=== PATIENT | male | born 1970 | race Caucasian/White ===

== ENCOUNTER → 2017-12-13 07:49 | Outpatient (CLI) | payer MEDICAID, SELFPAY ==
--- NOTE | 2017-12-13 | MR_ITS ---
MR lumbar spine wo con, MR 3-d myelogram/MRCP HISTORY: ITS.REASON: LEFT LUMBAR RADICULOPATHY . Low back pain radiating the left hip with tingling and burning down left leg ORDERING PHYSICIAN: Anthony Contreras MD PATIENT AGE: 47 years COMPARISON: None TECHNIQUE: Standard multiplanar multiecho sequences are performed without contrast. 3-D MIP and myelographic images are also rendered and reviewed FINDINGS: There is normal alignment. The spinal cord ends at the T12-L1 level. T12-L1, L1-L2, and L2-L3 have an unremarkable appearance. L3-L4: Concentric bulging disc slightly eccentric toward the left with mild facet and ligamentum flavum hypertrophy with mild bilateral foraminal narrowing. This is slightly greater on the left. There is increased T2 signal involving the central aspect of the disc suggesting a small annular tear. L4-L5: Bulging disc with a broad-based small to medium-sized central disc protrusion/herniation with minimal inferior extrusion. There is associated facet and ligamentum hypertrophy also at this level. There is mild narrowing of the canal. There is severe bilateral lateral recess narrowing with moderate right foraminal narrowing and moderate to severe left foraminal narrowing. There is impingement upon both L5 nerve roots. This is greater on the left. L5-S1: Unremarkable. IMPRESSION: 1. Concentric bulging disc at L3-L4 slightly eccentric toward the left with mild facet and ligamentum flavum hypertrophy with mild bilateral foraminal narrowing. This is slightly greater on the left. There is increased T2 signal involving the central aspect of the disc suggesting a small annular tear. 2. Bulging disc at L4-L5 with a broad-based small to medium-sized central disc protrusion/herniation with minimal inferior extrusion. There is associated facet and ligamentum hypertrophy also at this level with mild narrowing of the canal. There is severe bilateral lateral recess narrowing with moderate right foraminal narrowing and moderate to severe left foraminal narrowing. There is impingement upon both L5 nerve roots. This is greater on the left. IMPRESSION:
== END ==
PROVIDERS: Family Provider Family Medicine; PCP Nurse Practitioner; Visit Provider Family Medicine
DX: M54.16 Radiculopathy, lumbar region (principal)
CPT/HCPCS: 72148; 76376

== ENCOUNTER 2018-01-23 15:00 | Outpatient (RCR) | payer MEDICAID, SELFPAY | END 2018-01-23 15:01 | disposition home or self-care (01) | LOC: PT 15:00 | PROVIDERS: Family Provider Family Medicine; PCP Nurse Practitioner; Visit Provider Physician Assistant Medical | DX: M51.16 Intervertebral disc disorders with radiculopathy, lumbar region (principal) | CPT/HCPCS: 97010; 97012; 97014; 97110; G0283 ==

== ENCOUNTER 2018-08-26 11:00 | Outpatient (RCR) | payer MEDICAID, SELFPAY ==
--- NOTE | 2018-07-14 09:33 | HMH.PTOPEV ---
PT Outpatient Evaluation Rehab PT Outpatient Evaluation Start: 07/14/18 09:26 Freq: Status: Active Protocol: Document 07/14/18 09:26 DARRYN (Rec: 07/14/18 09:33 DARRYN [id number]) Electronically Signed By Luis Morse, PT 07/14/18 09:26 Outpatient Therapy Subjective History Subjective History Pt reports falling off ladder, landing on heels, and feeling a 'pop' in the low back. Pt reports a similar episode of pain last year, and 'this one doesn't feel quite as bad'. pt reports L sided LBP with radicular pain form L hip/glut to lateral calf area. Chief Complaint Pain Spasms Paresthesia Symptom Type Ache Throb Numbness Tingling Symptoms Relieved By Nothing Symptoms Aggravated By Sitting Physical Activity Walking Lifting Prior Functional Limitations None Current Functional Limitations Lifting Sitting Walking Symptom Description Constant and Continuous Level of pain today (0-10) 6 Pain scale - at its best (0-10) 3 Pain scale - at its worst (0-10) 8 Lumbopelvic Eval Posture Thoracic Spine Posture Standing Position Neutral Lumbar Spine Posture Standing Position Neutral Assistive device Assistive Devices None / NA Gait Observation General Gait Pattern Observation Antalgic Gait Palapation tenderness left paraspinal tenderness Yes: 3/4 buttock tenderness Yes: 3/4 Lumbar/Sacral Palpation Findings Tenderness Muscle Guarding Lumbar/Sacral Palpation Overall Comment 3/4 Accessory Movement L-spine Vertebrae Accessory Movements Central P/A [place] that Elicit Symptoms L4 left L5 left Range of Motion Lumbar Spine Active Flexion Range of 0-80 Motion (degrees) Lumbar Spine Active Extension Range of 0-20 Motion (degrees) Left Lumbar Spine Lateral Flexion Active 0-15 Range of Motion (degrees) Right Lumbar Spine Lateral Flexion 0-25 Active Range of Motion (degrees) Lumbar Spine ROM Limitations Pain Manual Muscle Test Bilateral Knee Extension Strength Grade 5 Normal Knee Flexion Strength Grade 5 Normal Hip Flexion Strength Grade 4- Good-
--- NOTE | 2018-08-12 09:32 | HMH.RHREAS ---
Rehab Reassessment Rehab OP Re-assessment Start: 08/12/18 09:27 Freq: Status: Active Protocol: Document 08/12/18 09:27 DARRYN (Rec: 08/12/18 09:32 DARRYN [id number]) Electronically Signed By Luis Morse, PT 08/12/18 09:27 Rehab Re-assessment Subjective Subjective PT REPORTS IMPROVED L LE S/S INTERMITTENTLY, HOWEVER, STILL 'HAVE MORE PAIN THAN I'D LIKE , ESPECIALLY WHEN I'M WORKING' . Objective Objective Notes AROM: L-SPINE FLX 0-80, EXT 0- 25, B SB 0-30 MMT: B LE WFL TTP: L PIRI. MM 10/31 Assessment Progress Assessment Progressing as Expected Assessment Notes PT W/IMPROVED ROM, STRENGTH, AND TTP Patient goals met STG'S 01/31 LTG'S 12/05 Goals Not Met STG'S 12/03, LTG'S 04/04 Plan Plan PT TO CONT. W/SKILLED P.T. TO MAKE FURTHER IMPROVEMENTS W/ ROM, STRENGTH, AND TTP TO ALLOW FOR OPTIMAL FUNCTION Frequency of Therapy 1-2X/WK Duration of therapy 3-4WKS Time and Billing Re-Eval Time 15 Re-Eval Billing Units 1 PHYSICIAN CERTIFICATION: I certify the specified therapy services for Akil Thompson are required, authorized, and reviewed every 30 days.
== END 2018-08-26 11:01 | disposition home or self-care (01) ==
LOC: PT 11:00
PROVIDERS: Visit Provider Family Medicine
DX: M51.16 Intervertebral disc disorders with radiculopathy, lumbar region (principal)
CPT/HCPCS: 97010; 97012; 97014; 97110; 97163; 97164; G0283

== ENCOUNTER → 2020-03-04 15:11 | Outpatient (CLI) | payer OTHER, SELFPAY ==
--- NOTE | 2020-03-04 15:20 | XR_ITS ---
PROCEDURE: XR LUMBAR SPINE MIN 4V CLINICAL INDICATION: RT SIDED LOW BACK PAIN COMPARISON: No exams were available for comparison FINDINGS: There is normal alignment. There is mild degenerative disc disease L2 to L5. Small anterior osteophytes are present at L2-L3 L4 and L5. No fracture or dislocation. No lytic or blastic change. IMPRESSION: Mild degenerative changes Dictated by: Sarthak Lee MD 03/04/2020 15:45 Electronically signed by Sarthak Lee MD in [place] 03/04/2020 15:45
== END ==
PROVIDERS: PCP Family Medicine; Visit Provider Family Medicine
DX: M54.41 Lumbago with sciatica, right side (principal); G89.29 Other chronic pain
CPT/HCPCS: 72110

== ENCOUNTER → 2020-05-26 15:48 | Outpatient (CLI) | payer OTHER, SELFPAY ==
[2020-05-28 08:56] LABS: Covid-19 Nasal PCR Sendout Lex NOT DETECTED
== END ==
PROVIDERS: PCP Family Medicine; Visit Provider Family Medicine
DX: Z03.818 Encounter for observation for suspected exposure to other biological agents ruled out (principal)
CPT/HCPCS: U0004

== ENCOUNTER 2021-01-03 23:53 | Emergency (ER) | payer OTHER, SELFPAY ==
[2021-01-03 23:54] VITALS: BP 144/89; PULSE 71; RESP 20; TEMP 36.7; O2SAT 97; BMI 34.3
--- NOTE | 2021-01-04 00:23 | XR_ITS ---
PROCEDURE: XR PELVIS MIN 3V CLINICAL INDICATION: pain Right hip pain COMPARISON: CT CT ABDOMEN PELVIS WO CON from 12/09/2019 CR XR HIP RT 2-3V W/PELVIS from 01/04/2021 TECHNIQUE: XR Pelvis AP View FINDINGS: No fracture or dislocation is evident. Mild osteoarthritic changes of hips. 1 cm calcific density in the soft tissues lateral to the right hip which may be due to injection granuloma. Small sclerotic density is noted overlying the junction of the femoral head and neck and may be due to a bone island. This may also be due to summation artifact. IMPRESSION: Mild osteoarthritic change. No acute finding. Possible small sclerotic lesion of the junction of the femoral head and neck on the right. Dictated by: Sarthak Lee MD 01/04/2021 05:21 Sarthak Lee MD in [place] 01/04/2021 05:21
--- NOTE | 2021-01-04 00:23 | XR_ITS ---
PROCEDURE: XR LUMBAR SPINE MIN 4V CLINICAL INDICATION: pain Pain radiating into right leg COMPARISON: CR XR LUMBAR SPINE MIN 4V from 03/04/2020 FINDINGS: Normal alignment. Mild multilevel degenerative disc disease. No acute fracture or dislocation. There is degenerative disc disease from L1-S1. No lytic or blastic change. Mild facet sclerosis L5-S1. IMPRESSION: Lumbar spondylosis. Dictated by: Sarthak Lee MD 01/04/2021 05:11 Sarthak Lee MD in [place] 01/04/2021 05:11
[2021-01-04 01:10] LABS: Basophils # 0.1 K/mm3 (0-0.2); Basophils % 0.8 % (0.1-2.0); Eosinophils # 0.6 K/mm3 (0.0-0.4); Eosinophils % 6.8 % (0.1-12.0); Hematocrit 42.8 % (42.0-52.0); Hemoglobin 13.8 g/dL (14.1-18.0); Lymphocytes % 42.5 % (10-50); Mean Corpuscular HGB Conc 32.3 g/dL (31.8-35.4); Mean Corpuscular Hemoglobin 28.4 pg (27.0-31.2); Mean Corpuscular Volume 87.9 fl (80-94); Mean Platelet Volume 7.1 fl (7.4-10.4); Monocytes # 0.7 K/mm3 (0.1-1.0); Monocytes % 7.5 % (1.7-9.3); Neutrophils # 3.9 K/mm3 (1.8-7.8); Neutrophils % 42.3 % (37.0-80.0); Platelet Count 313 K/mm3 (142-424); Red Blood Count 4.87 M/mm3 (4.60-6.20); White Blood Count 9.3 K/mm3 (4.8-10.8)
[2021-01-04 01:15] LABS: Chloride 105 mmol/L (98-107); Potassium 4.2 mmoL/L (3.5-5.1); Sodium 138 mmol/L (136-145)
[2021-01-04 01:18] LABS: Alanine Aminotransferase 34 U/L (12-78); Albumin/Globulin Ratio 1.1 (1.1-1.8); Alkaline Phosphatase 82 U/L (38-126); Anion Gap 10.2 mEq/L (5-15); Aspartate Amino Transferase 37 U/L (17-59); Bilirubin,Total 0.4 mg/dl (0.2-1.3); Blood Urea Nitrogen 17 mg/dl (9-20); Carbon Dioxide 27 mmol/L (22.0-30.0); Creatinine Clearance Estimated 121 mL/min (50-200); Estimated Glomerular Filt Rate 79 ml/min (>60); GFR (African American) 96 ML/MIN (>60); Globulin 3.5 g/dL (1.3-3.2); Glucose 119 mg/dl (74-100); Total Protein,Serum 7.5 g/dl (6.3-8.2)
[2021-01-04 01:24] LABS: C-Reactive Protein 3.4 mg/L (0-4)
--- NOTE | 2021-01-04 01:41 | HMH.EDGENADL ---
ED Disposition Clinical Impression: Lumbar radicular pain Disposition: Home, Self-Care Condition on Discharge: Good Instructions: DI for Lumbar Radiculopathy Additional Instructions: use meds and see pcp for follow up Prescriptions: predniSONE [Prednisone 20mg Tab] 20 mg PO BID #10 tab Transmission Status: Pending to [id number] Referrals: Anthony Contreras MD [Primary Care Provider] - - Critical Care Critical Care Time: No Attestation: On 01/03/21, the high probability of a clinically significant, sudden or life threatening deterioration of the following system(s) required my full and direct attention, intervention and personal management. The time I documented below is in addition to time spent performing reported procedures but includes the following listed in this critical care notation. Medical Decision Making - Medical Records Medical records reviewed: Yes: I reviewed the patient's medical records. - Miquel Inquiry Pt receiving controlled substance: No Vital Signs: 01/03/21 23:54 Temperature 98.0 F Temperature Source Oral Pulse Rate [Right] 71 Respiratory Rate 20 Blood Pressure [Right Arm] 144/89 H Blood Pressure Mean [Right Arm] 107 02 Sat by Pulse Oximetry 97 - Lab Data Lab results reviewed: Yes: I reviewed the patient's lab results. Lab Results 01/04/21 01:07: WBC 9.3, RBC 4.87, Hgb 13.8 L, Hct 42.8, MCV 87.9, MCH 28.4, MCHC 32.3, RDW 13.0, Plt Count 313, MPV 7.1 L, Neut % (Auto) 42.3, Lymph % (Auto) 42.5, George % (Auto) 7.5, Eos % (Auto) 6.8, Baso % (Auto) 0.8, Neut # (Auto) 3.9, Lymph # (Auto) 4.0, George # (Auto) 0.7, Eos # (Auto) 0.6 H, Baso # (Auto) 0.1 01/04/21 01:07: Sodium 138, Potassium 4.2, Chloride 105, Carbon Dioxide 27, Anion Gap 10.2, BUN 17, Creatinine 1.00, Estimated Creat Clear 121, Estimated GFR 79, Est GFR ( Amer) 96, Glucose 119 H, Calcium 9.0, Total Bilirubin 0.4, AST 37, ALT 34, Alkaline Phosphatase 82, C-Reactive Protein 3.4, Total Protein 7.5, Albumin 4.0, Globulin 3.5 H, Albumin/Globulin Ratio 1.1 Result diagrams: 01/04/21 01:07 01/04/21 01:07 Orders (Tests/Meds): ED MEDICATIONS Discontinued Medications Generic Name Dose Route Start Last Admin Trade Name Silvio PRN Reason Stop Dose Admin Ketorolac Tromethamine 30 mg 01/04/21 00:25 01/04/21 00:41 Ketorolac 30mg/Ml Vial IV 01/04/21 00:26 30 mg ONCE ONE Administration Methylprednisolone Sodium Succinate 125 mg 01/04/21 00:25 01/04/21 00:41 Methylprednisolone Sod Succ 125mg Vial IV 01/04/21 00:26 125 mg ONCE ONE Administration ORDERS Category Date Time Status XR hip RT 2-3V w/pelvis Stat Exams 01/04/21 00:23 Taken XR lumbar spine min 4V Stat Exams 01/04/21 00:23 Taken XR pelvis min 3V Stat Exams 01/04/21 00:24 Taken C-Reactive Protein Stat Lab 01/04/21 01:07 Results Complete Blood Count Auto Diff Stat Lab 01/04/21 01:07 Results Comprehensive Metabolic Panel Stat Lab 01/04/21 01:07 Results ESR [Erythrocyte Sedimentation Rate] Stat Lab 01/04/21 01:07 Results Procalcitonin Stat Lab 01/04/21 01:07 Results - Radiology Data #1 Image(s): L-Spine, Pelvis, Hip Image Reviewed: Yes I reviewed the patient's radiology image Preliminary Findings: No Fracture Seen - Reevaluation(s) Time: 01:48 Reevaluation #1: doing better Medical Decision Narrative: prob lumbar radicular pain with no cauda equina sx General Adult HPI - General Chief complaint: PAIN Stated complaint: Right hip pain Time Seen by Provider: 01/04/21 00:00 Mode of Arrival: Ambulatory Source of Information: Patient, Medical Record Limitations: No Limitations Description of Symptoms (Recalled from ER Triage Doc. by RN): pt c/o of rt hip that is sharp running down is leg. pt is currently in physical therepy foe this problem - History of Present Illness HPI narrative: acute exacerbation ot sciatica w/o fever/rash or trauma - has hx of lumbar radicular pain and i
[2021-01-04 01:48] VITALS: BP 148/64; PULSE 68; RESP 16; TEMP 36.7; O2SAT 97
[2021-01-04 02:08] LABS: Erythrocyte Sedimentation Rate 35 mm/hr (0-15)
[2021-01-04 02:40] LABS: Procalcitonin 0.054 ng/mL (0.0-2.0)
== END 2021-01-04 02:03 | disposition home or self-care (01) ==
PROVIDERS: Emergency Provider Emergency Medicine; PCP Family Medicine
DX: M54.16 Radiculopathy, lumbar region (principal); E78.5 Hyperlipidemia, unspecified
CPT/HCPCS: 72110; 72190; 73502; 80053; 84145; 85025; 85651; 86140; 96374; 96375; 99282

== ENCOUNTER 2021-01-05 07:59 | Emergency (ER) | payer OTHER, SELFPAY ==
[2021-01-05] VITALS (7 sets, daily range): BP systolic 105–140; BP diastolic 63–85; PULSE 61–76; RESP 18–20; TEMP 36.6–36.8; O2SAT 94–98; BMI 33.3
--- NOTE | 2021-01-05 07:58 | ECG_ITS ---
APPROVED REPORT Exam: Resting ECG HR:84 bpm ECG Measurements Heart Rate 84 AXES HI 144 P 42 QRSd 92 QRS 4 QT 354 T 32 QTc 418 Conclusion Normal sinus rhythm Normal ECG Electronically signed by : Anthony Renteria, 01/06/2021 08:55:05
--- NOTE | 2021-01-05 08:04 | XR_ITS ---
PROCEDURE: XR CHEST PORTABLE CLINICAL HISTORY: chest pain COMPARISON: No exams were available for comparison FINDINGS: The cardiomediastinal silhouette and pulmonary vascularity are within normal limits. The lungs are clear without infiltrates, suspicious nodules, or pleural effusions. No acute bony abnormalities. IMPRESSION: No acute findings. Dictated by: Sarthak Lee MD 01/05/2021 09:55 Sarthak Lee MD in [place] 01/05/2021 09:55
--- NOTE | 2021-01-05 08:27 | HMH.EDGENADL ---
ED Disposition Clinical Impression: Atypical chest pain, Epigastric pain Disposition: Home, Self-Care Condition on Discharge: Fair Instructions: DI for Dyspepsia, DI for Atypical Chest Pain Additional Instructions: Been evaluated for atypical chest pain and epigastric pain. Follow up with Dr. Estrella for further evaluation of chest pain. Follow-up with your primary care physician and call Dr. Allen, gastroenterology, for an appointment. I believe you would benefit from upper endoscopy to look for ulcers or other abnormality in your esophagus or stomach. Start taking omeprazole 20 mg daily. Avoid spicy food, acidic food, cafeine, tobacco, acohol. Avoid eating before sleep. Prescriptions: Omeprazole [Omeprazole 20mg Tab] 20 mg PO DAILY #30 tab Transmission Status: Pending to [id number] Referrals: Carlos Enrique Estrella MD [Staff Physician] - 01/09/21 8:30 am (Follow up from ER visit ) Anthony Contreras MD [Primary Care Provider] - Juan Allen MD [Staff Physician] - Time of Disposition: 10:59 - Critical Care Critical Care Time: No Attestation: On 01/05/21, the high probability of a clinically significant, sudden or life threatening deterioration of the following system(s) required my full and direct attention, intervention and personal management. The time I documented below is in addition to time spent performing reported procedures but includes the following listed in this critical care notation. Medical Decision Making - Medical Records Medical records reviewed: Yes: I reviewed the patient's medical records. - Miquel Inquiry Pt receiving controlled substance: No (He does not look significantly anemic but no notes) Vital Signs: 01/05/21 07:59 01/05/21 08:39 01/05/21 09:36 Temperature 98.2 F Temperature Source Oral Pulse Rate [Left Radial] 73 72 71 Respiratory Rate 18 20 20 Blood Pressure [Right Arm] 125/63 120/69 106/70 L Blood Pressure Mean [Right Arm] 83 86 82 Blood Pressure Source [Right Arm] Automatic Cuff Blood Pressure Position [Right Arm] Sitting 02 Sat by Pulse Oximetry 98 94 L 94 L Oxygen Delivery Method Room Air 01/05/21 10:30 Temperature Temperature Source Pulse Rate [Left Radial] 61 Respiratory Rate 19 Blood Pressure [Right Arm] 105/69 L Blood Pressure Mean [Right Arm] 81 Blood Pressure Source [Right Arm] Automatic Cuff Blood Pressure Position [Right Arm] Sitting 02 Sat by Pulse Oximetry 98 Oxygen Delivery Method Room Air - Lab Data Lab Results 01/05/21 08:11: WBC 18.2 H D, RBC 5.24, Hgb 15.1, Hct 47.4, MCV 90.4, MCH 28.8, MCHC 31.8, RDW 13.1, Plt Count 346, MPV 7.3 L, Neut % (Auto) 84.7 H, Lymph % (Auto) 10.3, Edgar % (Auto) 4.8, Eos % (Auto) 0.1, Baso % (Auto) 0.1, Neut # (Auto) 15.4 H, Lymph # (Auto) 1.9, Edgar # (Auto) 0.9, Eos # (Auto) 0.0, Baso # (Auto) 0.0, Total Counted 100, Neutrophils % (Manual) 88 H, Lymphocytes % (Manual) 10, Monocytes % (Manual) 2, Platelet Estimate Normal, RBC Morphology Normal 01/05/21 08:11: Sodium 139, Potassium 4.5, Chloride 107, Carbon Dioxide 22, Anion Gap 14.5, BUN 19, Creatinine 0.90, Estimated Creat Clear 134, Estimated GFR 89, Est GFR ( Amer) 108, Glucose 139 H, Calcium 9.4, Total Bilirubin 0.5, AST 34, ALT 37, Alkaline Phosphatase 89, Troponin I < 0.01, Total Protein 8.5 H, Albumin 4.5 D, Globulin 4.0 H, Albumin/Globulin Ratio 1.1 01/05/21 08:11: D-Dimer 0.35 01/05/21 08:11: Lipase 41 Result diagrams: 01/05/21 08:11 01/05/21 08:11 Orders (Tests/Meds): ED MEDICATIONS Discontinued Medications Generic Name Dose Route Start Last Admin Trade Name Freq PRN Reason Stop Dose Admin Aspirin 325 mg 01/05/21 08:16 01/05/21 08:27 Aspirin 325mg Tablet PO 01/05/21 08:17 325 mg ONCE ONE Administration Belladonna Alkaloids 60 ml 01/05/21 09:59 01/05/21 08:06 Gi Cocktail 60ml Udc PO 01/05/21 10:00 60 ml ONCE ONE Administration ORDERS Category Date Time Status Troponin I Q3H Lab
[2021-01-05 08:42] LABS: Basophils % 0.1 % (0.1-2.0); Eosinophils % 0.1 % (0.1-12.0); Hematocrit 47.4 % (42.0-52.0); Hemoglobin 15.1 g/dL (14.1-18.0); Lymphocytes # 1.9 K/mm3 (0.7-4.5); Lymphocytes % 10.3 % (10-50); Mean Corpuscular HGB Conc 31.8 g/dL (31.8-35.4); Mean Corpuscular Hemoglobin 28.8 pg (27.0-31.2); Mean Corpuscular Volume 90.4 fl (80-94); Mean Platelet Volume 7.3 fl (7.4-10.4); Monocytes # 0.9 K/mm3 (0.1-1.0); Monocytes % 4.8 % (1.7-9.3); Neutrophils # 15.4 K/mm3 (1.8-7.8); Neutrophils % 84.7 % (37.0-80.0); Platelet Count 346 K/mm3 (142-424); Red Blood Count 5.24 M/mm3 (4.60-6.20); Red Cell Distribution Width 13.1 % (11.5-17.5); White Blood Count 18.2 K/mm3 (4.8-10.8)
[2021-01-05 08:45] LABS: MANUAL DIFFERENTIAL MANUAL DIFFERENTIAL (MANUAL DIFF)
[2021-01-05 09:03] LABS: Alanine Aminotransferase 37 U/L (12-78); Albumin Level 4.5 g/dl (3.5-5.0); Albumin/Globulin Ratio 1.1 (1.1-1.8); Alkaline Phosphatase 89 U/L (38-126); Anion Gap 14.5 mEq/L (5-15); Aspartate Amino Transferase 34 U/L (17-59); Bilirubin,Total 0.5 mg/dl (0.2-1.3); Blood Urea Nitrogen 19 mg/dl (9-20); Calcium 9.4 mg/dl (8.4-10.2); Carbon Dioxide 22 mmol/L (22.0-30.0); Chloride 107 mmol/L (98-107); Creatinine Clearance Estimated 134 mL/min (50-200); Estimated Glomerular Filt Rate 89 ml/min (>60); GFR (African American) 108 ML/MIN (>60); Glucose 139 mg/dl (74-100); Lipase 41 U/L (23-300); Potassium 4.5 mmoL/L (3.5-5.1); Sodium 139 mmol/L (136-145); Total Protein,Serum 8.5 g/dl (6.3-8.2)
[2021-01-05 09:07] LABS: D-Dimer 0.35 ug/mL (0.0-0.5)
[2021-01-05 09:17] LABS: Troponin I < 0.01 ng/ml (0.00-0.034)
[2021-01-05 09:53] LABS: Lymphocytes % 10 % (10-50); Monocytes % 2 % (2-9); Neutrophils % 88 % (42-76); Platelet Estimate Normal; RBC Morphology Normal; Total Cells Counted 100
--- NOTE | 2021-01-05 10:42 | PC.NURSE ---
MD at bedside discussing care.
[2021-01-05 11:40] LABS: Troponin I < 0.01 ng/ml (0.00-0.034)
== END 2021-01-05 11:45 | disposition home or self-care (01) ==
PROVIDERS: Emergency Provider Emergency Medicine; PCP Family Medicine
DX: R07.89 Other chest pain (principal); R10.13 Epigastric pain; K21.9 Gastro-esophageal reflux disease without esophagitis
CPT/HCPCS: 71045; 80053; 83690; 84484; 85007; 85025; 85378; 93005; 99283

== ENCOUNTER 2021-01-18 13:00 | Outpatient (RCR) | payer OTHER, SELFPAY ==
--- NOTE | 2020-12-21 14:36 | HMH.PTOPEV ---
PT Outpatient Evaluation Rehab PT Outpatient Evaluation Start: 12/21/20 14:02 Freq: Status: Active Protocol: Document 12/21/20 14:25 EMERSON (Rec: 12/21/20 14:36 PHORNE [id number]) Electronically Signed By Len Forrest, PT 12/21/20 14:25 Outpatient Therapy Subjective History Subjective History Pt is 50 yowm who presents with c/o pain in post R hip and lateral R LE to knee distally x 2-3 mos with insidious onset. He reports having previous symptoms similar to this, only on his L LE ~ 2-3 yrs ago. He had MRI at that time which showed L3/4 and L4/5 disc bulges. X-ray performed ~ 9 mos ago showed minimal DDD. He reports he had good result with therapy and had no pain since that time until now. He reports no significant PMH. Chief Complaint Pain Symptom Type Ache,Sharp Symptoms Relieved By Rest/Positioning Symptoms Aggravated By Bending/Stooping,Physical Activity,Lifting Prior Functional Limitations None Current Functional Limitations Lifting,Walking Symptom Description Constant but Variable Level of pain today (0-10) 2 Pain scale - at its worst (0-10) 6 Lumbopelvic Eval Palapation tenderness right buttock tenderness Yes Accessory Movement L-spine Vertebrae Accessory Movements Central P/A [place] that Elicit Symptoms L3 bilateral L4 bilateral L5 bilateral Range of Motion Lumbar Spine Active Flexion Range of 0-65 Motion (degrees) Lumbar Spine Active Extension Range of 0-10 Motion (degrees) Left Lumbar Spine Lateral Flexion Active 0-15 Range of Motion (degrees) Right Lumbar Spine Lateral Flexion 0-10 Active Range of Motion (degrees) Manual Muscle Test Bilateral Knee Extension Strength Grade 5 Normal Knee Flexion Strength Grade 5 Normal Hip Flexion Strength Grade 5 Normal Hip Abduction Strength Grade 5 Normal Hip Adduction Strength Grade 5 Normal Extensor Hallucis Longus Strength Grade 5 Normal Ankle Dorsiflexion Strength Grade 5 Normal Gastronemius/Soleus Strength Grade 5 Normal Special Tests Hip Scouring (Quadrant) Test Negative Left,Negative Right Hip Jose (TRENT) Test Negative Left,Negative Right Hip Piriformis Test Negative Left,N
== END 2021-01-18 13:05 | disposition home or self-care (01) ==
LOC: PT 13:00
PROVIDERS: PCP Family Medicine; Visit Provider Family Medicine
DX: M54.41 Lumbago with sciatica, right side (principal)
CPT/HCPCS: 97010; 97012; 97014; 97110; 97140; 97163; G0283

== ENCOUNTER → 2021-01-18 18:35 | Outpatient (CLI) | payer OTHER, SELFPAY ==
[2021-01-18 19:40] LABS: Coronavirus 19 IgG Antibody Negative (Negative); Coronavirus 19 IgM Antibody Negative (Negative)
== END ==
PROVIDERS: PCP Family Medicine; Visit Provider Internal Medicine Gastroenterology
DX: Z01.818 Encounter for other preprocedural examination (principal); Z20.822 Contact with and (suspected) exposure to COVID-19; Z13.810 Encounter for screening for upper gastrointestinal disorder; Z12.11 Encounter for screening for malignant neoplasm of colon
CPT/HCPCS: 36415; 86328

== ENCOUNTER 2021-01-20 09:01 | Day surgery (SDC) | payer OTHER, SELFPAY ==
[2021-01-17 13:16] VITALS: BMI 33.5
[2021-01-20] VITALS (8 sets, daily range): BP systolic 112–133; BP diastolic 60–80; PULSE 64–82; RESP 14–18; TEMP 36.2–36.6; O2SAT 93–98
--- NOTE | 2021-01-20 09:28 | P.PN_ITS ---
[facility] Anesthesia Checklist - Patient Identification Patient Identification: Arm Band - Structural Data Admitted From: Home Planned Operative Procedure/s: EGD, Colonscopy Consent for Planned Operative Procedure(s) Verified: Yes - NPO Status Verified Time NPO: 00:00 - Airway Assessment C-Spine Mobility Assessed: No TMJ Mobility Assessed: No Dentition: Good Dentition - Neurological Assessment Level of Consciousness: Awake Hx Seizures: No Numbness or tingling in extremities: No - Anesthesia Plan Anesthesia Risk discussed: Yes Anesthesia Plan: Verified ASA Class: II Anesthesia Type: MAC [facility] History I have reviewed the patient's past medical history: Yes 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: Reports:: Hyperlipidemia Denies:: Cancer, Diabetes Mellitus Type 1, Diabetes Mellitus Type 2, Internal Pacemaker, MRSA, Seizures *Have you ever received a pneumonia vaccine?: No *Have you received a flu vaccine this season?: No Anesthesia experience/problems:: None Laterality Cases: Bilateral: Tonsillectomy Other Surgeries: No: Pacemaker Amputation: No Fractures: No - *Social History Last grade of school completed: High school graduate Smoking Status: Never smoker Alcohol Intake: never Substance Use Type: denies use *Occupational Status:: employed Housing: house Household Members: spouse, family *Travel in the last 8 weeks: None Family Hx:: Unable to obtain
--- NOTE | 2021-01-20 09:53 | HMH.PROC ---
[facility] Procedure Note Procedure Note:: Upper Endoscopy Procedure Report: Esophagogastroduodenoscopy with cold biopsies Endoscopost: Juan Allen II, MD Referring Physician: Anthony Contreras MD Date of Procedure: January 20, 2021 Equipment: Olympus GIF 190 standard upper endoscope Sedation: MAC sedation Indications: Mr. Thompson is a 50-year-old gentleman who states that he developed more severe epigastric and lower retrosternal pain on January 05 or January 06, 2021. He had some associated nausea. It was relieved while lying supine. He was taking omeprazole. The patient reports no melena or hematochezia. He does state that the pain was not relieved within 24 hours but he had pressure for a couple of additional days that radiated into his shoulder blades. He did not have any gallbladder ultrasound. He reports no bloating, belching, heartburn or dysphagia. He reports no weight loss or change in bowel habits. He has stopped taking the omeprazole. Procedure: Prior to the procedure, a history and physical exam was performed, and patient's medications and allergies were reviewed. The risks, benefits and alternatives of the sedation and procedure were discussed with the patient. All questions were answered and informed consent was obtained. The patient was brought to the procedure room. Patient identification and proposed procedure were verified by the physician and the nurse. The patient was placed in a left lateral decubitus position and the scope was passed under direct vision. Throughout the procedure, the patient's blood pressure, pulse, and oxygen saturations were monitored continuously. The upper GI endoscopy was accomplished without difficulty. The patient tolerated the procedure well. Findings: The scope was passed directly into the upper esophagus and advanced to the third portion of the duodenum. The post bulbar duodenum had normal mucosa and conniventes. Within the duodenal bulb was evidence of a healing duodenal ulcer along the anterior medial wall of the duodenal bulb. The scope was withdrawn through a normal pylorus into the stomach. There was evidence of linear reactive gastropathy of the antrum of the stomach. There was bile reflux. The body and fundus of the stomach were grossly normal. The remainder of the antrum, body and fundus of the stomach were grossly normal. Upon retroflexion there was a small 2 cm hiatal hernia. 2 biopsies were taken in the antrum and along the lesser curvature for histology to rule out gastritis and/or H pylori. The scope was then withdrawn into the esophagus. There was a serrated Z-line with a couple of tongues of salmon-colored mucosa that were biopsied to rule out Squires's esophagus. There was no evidence of reflux esophagitis or rings. The remainder of the esophageal mucosa was normal. Impression: 1. Nonerosive GERD with small 2 cm hiatal hernia and possible short segment Squires's esophagus 2. Healing duodenal bulb ulcer (anterior medial wall) 3. Bile reflux with moderate linear reactive gastropathy Plan: I will follow-up the biopsies and discussed the findings with the patient and family. I will determine whether he was on NSAIDs previously. I would recommend that he remain on omeprazole for 12 weeks. I will proceed with screening colonoscopy.
--- NOTE | 2021-01-20 10:07 | HMH.PROC ---
[facility] Procedure Note Procedure Note:: Colonoscopy Procedure Report: Colonoscopy Endoscopist: Juan Allen II, MD Referring physician: Anthony Contreras MD Date of Procedure: January 20, 2021 Equipment: Olympus 190 variable stiffness pediatric colonoscope Sedation: MAC sedation Indication: Mr. Thompson is a 50-year-old gentleman who is here for screening colonoscopy. He does state that he had a colonoscopy by his recollection 8 years ago (? [facility]) at which time 2 or 3 polyps were removed. He reports no rectal bleeding, abdominal pain, weight loss or change in bowel habits. He reports no family history of colon cancer. Procedure: Prior to the procedure, a history and physical exam was performed, and patient's medications and allergies were reviewed. The risks, benefits and alternatives of the sedation and procedure were discussed with the patient. All questions were answered and informed consent was obtained. The patient was brought to the procedure room. Patient identification and proposed procedure were verified by the physician and the nurse. The patient was placed in a left lateral decubitus position and the scope was passed under direct vision. Throughout the procedure, the patient's blood pressure, pulse, and oxygen saturations were monitored continuously. The colonoscopy was accomplished without difficulty. The patient tolerated the procedure well. Findings: On digital rectal examination there was normal rectal tone. There were no external hemorrhoids. The colonoscope was introduced through the anal canal to the rectum and advanced to the cecum. The ileocecal valve and appendiceal orifice were identified. The scope was advanced a short distance into the ileum which appeared grossly normal. The scope was then withdrawn into the colon. The preparation was fair to poor throughout with a marked amount of solid plant residue and some liquid stool. The visible cecum, ascending, transverse, descending, sigmoid and rectum were grossly normal. There were no mucosal abnormalities identified. Upon retroflexion within the rectum there were grade 1 internal hemorrhoids.The preparation was fair to poor throughout with Rogers Preparation Score of 5 out of 9. The cecal time was 7 minutes. Impression: 1. Fair to poor bowel preparation otherwise normal colonoscopy to the terminal ileum Plan: I will inquire about how patient took bowel preparation and which preparation. I was still able to see and surveil the majority of the colon. We will discuss surveillance.
--- NOTE | 2021-01-20 10:13 | P.PN_ITS ---
[facility] Anesthesia Record Part I Intake, IV Amount: 500 Estimated blood loss (mL): 0 Urine output (mL): 0 Blood Pressure: 112/60 SaO2: 95 Pulse Rate: 82 Respiratory Rate: 14 Temperature: 97.1 F Patient is:: Awake Stable to PACU at:: 10:10
--- NOTE | 2021-01-20 11:50 | P.PN_ITS ---
[facility] Anesthesia Record Part II Discharge Time: 10:58 Destination: Surgical Day Care (OP Surgery) PACU nurse assessment reviewed?: Yes Patient Condition:: Good Anesthesia Complications:: None Swallowing reflex intact?: Yes Cyanosis?: No Blood Pressure: 116/76 Pulse Rate: 64 Temperature: 97.1 F Mental Status: Alert & Oriented Pain level:: 0 Nausea and/or vomitting:: None Intake, IV Amount: 500
== END 2021-01-20 11:08 | disposition home or self-care (01) ==
LOC: OUTP 09:02
PROVIDERS: PCP Family Medicine; Visit Provider Internal Medicine Gastroenterology
PROC: 0DJ08ZZ Inspection of Upper Intestinal Tract, Via Natural or Artificial Opening Endoscopic (ICD-10-PCS; CPT 43235; principal; 2021-01-20 10:00)
DX: Z12.11 Encounter for screening for malignant neoplasm of colon (principal); K64.0 First degree hemorrhoids; K21.9 Gastro-esophageal reflux disease without esophagitis; K31.9 Disease of stomach and duodenum, unspecified; K44.9 Diaphragmatic hernia without obstruction or gangrene; K22.9 Disease of esophagus, unspecified; E78.5 Hyperlipidemia, unspecified; Z88.0 Allergy status to penicillin; Z88.8 Allergy status to other drugs, medicaments and biological substances; Z79.899 Other long term (current) drug therapy
CPT/HCPCS: 43239; 45378

== ENCOUNTER → 2021-02-03 15:03 | Outpatient (CLI) | payer OTHER, SELFPAY ==
--- NOTE | 2021-02-03 15:06 | MR_ITS ---
PROCEDURE: MR LUMBAR SPINE WO CON CLINICAL INDICATION: ACUTE RT SIDED LBP Pt c/o acute rt sided lbp that radiates down rt leg x1.5months with no known injury or trauma. COMPARISON: MR SPLUMBWO MR lumbar spine wo con from 12/13/2017 TECHNIQUE: Standard multiplanar multiecho sequences are performed without contrast. 3-D MIP and myelographic images are also rendered and reviewed FINDINGS: There is normal alignment. The spinal cord ends at the T12-L1 level. L1-L2: Unremarkable. L2-L3: Mild bulging disc which is eccentric toward the left with mild facet and ligamentum hypertrophy. This is causing mild to moderate left foraminal narrowing L3-L4: Degenerative disc disease with bulging disc. There is a small right paracentral disc herniation with inferior extrusion impinging upon the right L4 nerve root. The disc herniation has developed since the previous exam L4-5: Bulging disc with broad-based central disc protrusion with facet and ligamentum hypertrophy with resultant bilateral lateral recess narrowing greater on the left abutting the exiting L4 nerve root. The disc protrusion appears slightly smaller compared to the previous study. L5-S1: Facet and ligamentum hypertrophic change. No fracture apparent. IMPRESSION: 1. L2-L3: Mild bulging disc which is eccentric toward the left with mild facet and ligamentum hypertrophy. This is causing mild to moderate left foraminal narrowing 2. L3-L4: Degenerative disc disease with bulging disc. There is a small right paracentral disc herniation with inferior extrusion impinging upon the right L4 nerve root. The disc herniation has developed since the previous exam 3. L4-5: Bulging disc with broad-based central disc protrusion with facet and ligamentum hypertrophy with resultant bilateral lateral recess narrowing greater on the left abutting the exiting L4 nerve root. The disc protrusion appears slightly smaller compared to the previous study Dictated by: Sarthak Lee MD 02/04/2021 19:14 Sarthak Lee MD in [place] 02/04/2021 19:14
== END ==
PROVIDERS: PCP Family Medicine; Visit Provider Family Medicine
DX: M54.41 Lumbago with sciatica, right side (principal)
CPT/HCPCS: 72148; 76376

== ENCOUNTER 2021-02-04 02:51 | Emergency (ER) | payer OTHER, SELFPAY ==
--- NOTE | 2021-02-04 02:53 | HMH.EDGENADL ---
ED Disposition Clinical Impression: Lumbar radicular pain Disposition: Home, Self-Care Condition on Discharge: Good Additional Instructions: Use topical diclofenac on right hip/lower back. Take muscle relaxer as needed for muscle spasms. Do not operate heavy machinery or drink alcohol while taking muscle relaxer. Please return immediately if new or worsening symptoms otherwise continue following with your primary care doctor/physical therapy. Prescriptions: Cyclobenzaprine HCl [Cyclobenzaprine 10mg Tab*] 10 mg PO BIDP PRN 7 Days #20 tab PRN Reason: Muscle Spasm Transmission Status: Pending to [id number] Diclofenac Sodium [Voltaren 100gm Topical Gel] 1 applicatio TP BID #50 gm Transmission Status: [id number] Referrals: Anthony Contreras MD [Primary Care Provider] - - Critical Care Critical Care Time: No Attestation: On , the high probability of a clinically significant, sudden or life threatening deterioration of the following system(s) required my full and direct attention, intervention and personal management. The time I documented below is in addition to time spent performing reported procedures but includes the following listed in this critical care notation. Medical Decision Making - Medical Records Medical records reviewed: Yes: I reviewed the patient's medical records. - Miquel Inquiry Pt receiving controlled substance: No Vital Signs: 02/04/21 03:00 Temperature 98.0 F Temperature Source Oral Pulse Rate [Right Brachial] 72 Respiratory Rate 20 Blood Pressure [Right Arm] 114/69 Blood Pressure Mean [Right Arm] 84 Blood Pressure Source [Right Arm] Automatic Cuff Blood Pressure Position [Right Arm] Supine 02 Sat by Pulse Oximetry 96 Oxygen Delivery Method Room Air Orders (Tests/Meds): ED MEDICATIONS Discontinued Medications Generic Name Dose Route Start Last Admin Trade Name Freq PRN Reason Stop Dose Admin Cyclobenzaprine HCl 10 mg 02/04/21 03:11 02/04/21 03:22 Cyclobenzaprine 10mg Tablet PO 02/04/21 03:12 10 mg ONCE ONE Administration Ketorolac Tromethamine 15 mg 02/04/21 03:12 02/04/21 03:22 Ketorolac 30mg/Ml Vial IM 02/04/21 03:13 15 mg ONCE ONE Administration Medical Decision Narrative: Patient resents to the emergency department with acute on chronic back pain. Patient does appear to have lumbar radiculopathy. Patient has no red flag symptoms of back pain. An MRI was done 2 days ago without known results. He states he has had x-rays in the past without acute findings. At this time, patient will be given Flexeril and a shot of Toradol IM. I reviewed his chart pain he states he was given a shot last time which very much improved his symptoms. On his last visit he was given a shot of Toradol. Patient with improved symptoms. Patient ambulatory w/o assistance. And cyclobenzaprine prescription provided. Patient would not operate machinery or drink alcohol taking Flexeril. Will follow up with PCP for further management of his lumbar radiculopathy. He will return immediately if any new or worsening symptoms. Assessment: Acute on chronic lumbar radiculopathy Disposition: Home with follow-up General Adult HPI - General Stated complaint: Hip Pain Time Seen by Provider: 02/04/21 03:05 - History of Present Illness HPI narrative: Patient is a 50-year-old male with history of right hip pain/sciatica presenting with right hip pain. Patient states over the past several months he has dealt with right hip pain. He has followed with physical therapy without much improvement. He had an MRI done 2 days ago. Results not known at this time. He has had other imaging in the past which was unremarkable. He states he had a similar issue back in 2018 on the left side and physical therapy did help resolve his symptoms. He has been taking some ibuprofen at home without much relief. He also does take Neurontin. This evening, the p
[2021-02-04 03:00] VITALS: BP 114/69; PULSE 72; RESP 20; TEMP 36.7; O2SAT 96; BMI 33.5
[2021-02-04 03:31] VITALS: PULSE 85; O2SAT 95
[2021-02-04 03:49] VITALS: BP 106/57; PULSE 78; RESP 19; TEMP 36.7; O2SAT 96
== END 2021-02-04 03:50 | disposition home or self-care (01) ==
PROVIDERS: Emergency Provider Emergency Medicine; PCP Family Medicine
DX: M54.16 Radiculopathy, lumbar region (principal); E78.5 Hyperlipidemia, unspecified; Z88.0 Allergy status to penicillin; Z79.899 Other long term (current) drug therapy
CPT/HCPCS: 96372; 99282

== ENCOUNTER 2021-02-28 08:02 | Emergency (ER) | payer OTHER, SELFPAY ==
[2021-02-28 08:03] VITALS: BP 131/84; PULSE 75; RESP 16; TEMP 36.6; O2SAT 98; BMI 34.1
--- NOTE | 2021-02-28 08:07 | HMH.EDGENADL ---
ED Disposition Clinical Impression: Lumbar radiculopathy Disposition: Home, Self-Care Condition on Discharge: Good Referrals: Anthony Contreras MD [Primary Care Provider] - 3 days Time of Disposition: 08:22 - Critical Care Critical Care Time: No Attestation: On , the high probability of a clinically significant, sudden or life threatening deterioration of the following system(s) required my full and direct attention, intervention and personal management. The time I documented below is in addition to time spent performing reported procedures but includes the following listed in this critical care notation. Medical Decision Making - Medical Records Medical records reviewed: Yes: I reviewed the patient's medical records. - Miquel Inquiry Pt receiving controlled substance: No Vital Signs: 02/28/21 08:03 Temperature 98 F Temperature Source Oral Pulse Rate [Radial] 75 Respiratory Rate 16 Blood Pressure [Right Arm] 131/84 Blood Pressure Mean [Right Arm] 99 Blood Pressure Position [Right Arm] Sitting 02 Sat by Pulse Oximetry 98 Oxygen Delivery Method Room Air Medical Decision Narrative: 50yo M with known back pathology evaluated for pain. Patient is acutely uncomfortable on initial evaluation but otherwise in no acute distress. Treated with Toradol and Decadron. Patient appropriate stable to go home and take his regular pain medications. General Adult HPI - General Stated complaint: back pain Time Seen by Provider: 02/28/21 08:08 Mode of Arrival: Ambulatory - History of Present Illness HPI narrative: 50yo M with past medical history significant for known disc disease presents emergency department secondary to back pain. Patient reports he is to undergo spinal surgery 1 week from today in [place]. He states he was unable to sleep last night secondary to pain. Pain worsened this morning when he got up to go to the bathroom. He denies any new numbness. He denies any loss of bladder or bowel function. He denies any fall. Patient reports he has tramadol, hydrocodone, gabapentin at home of which she is not taking anything this morning. Patient states this happened previously and was well treated with steroid injection as well as something for inflammation. - Related Data Home Medications Medication Instructions Recorded Confirmed Atorvastatin Calcium [Atorvastatin 40 mg PO DAILY 05/21/18 02/04/21 40mg Tab] omeprazole 20 mg tablet,delayed 20 mg PO BID tab 01/09/21 02/04/21 release Previous Rx's Medication Instructions Recorded Cyclobenzaprine HCl 10 mg PO BIDP PRN 7 Days #20 tab 02/04/21 [Cyclobenzaprine 10mg Tab*] Diclofenac Sodium [Voltaren 100gm 1 applicatio TP BID #50 gm 02/04/21 Topical Gel] Allergies Allergy/AdvReac Type Severity Reaction Status Date / Time cefaclor [From CECLOR] Allergy Mild Rash Verified 02/04/21 03:24 Penicillins [PENICILLINS] Allergy Unknown Verified 02/04/21 03:24 [facility] History - Hepatitis A Screen Drug use history?: No Attestation statement:: This patient has been screened for Hepatitis A risk factors. I have reviewed the patient's past medical history: Yes 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: Reports:: Hyperlipidemia Denies:: Cancer, Diabetes Mellitus Type 1, Diabetes Mellitus Type 2, Internal Pacemaker, MRSA, Seizures Laterality Cases: Bilateral: Tonsillectomy Other Surgeries: No: Pacemaker Amputation: No Fractures: No - Social History Smoking Status: Never smoker Alcohol Intake: current Alcohol Intake Frequency:: holidays/special occasions only Substance Use Type: denies use Occupational Status: employed Housing: house Household Members: spouse Family Hx:: Unable to obtain ROS Obtained: Yes All systems reviewed & no additional complaints Physical Exam - General General appearance: alert, in no apparent distress - Head Head exam: atraumatic - Eye Eye exam: Present: normal appearance, EOMI - Chest Chest inspection: Present: normal i
[2021-02-28 08:50] VITALS: BP 132/74; PULSE 82; RESP 16; TEMP 36.6; O2SAT 98
== END 2021-02-28 08:51 | disposition home or self-care (01) ==
PROVIDERS: Emergency Provider Family Medicine; PCP Family Medicine
DX: M54.16 Radiculopathy, lumbar region (principal); Z88.0 Allergy status to penicillin; E78.5 Hyperlipidemia, unspecified
CPT/HCPCS: 96372; 99281

== ENCOUNTER 2021-06-11 10:16 | Emergency (ER) | payer OTHER, SELFPAY ==
[2021-06-11 10:53] VITALS: BP 132/84; PULSE 74; RESP 14; TEMP 36.9; O2SAT 97; BMI 32.5
--- NOTE | 2021-06-11 10:58 | HMH.EDUTC ---
[facility] Disposition Clinical Impression: Sinusitis Qualifiers: Sinusitis location: unspecified location Chronicity: acute Recurrence: non-recurrent Qualified Code(s): J01.90 - Acute sinusitis, unspecified Otitis media Qualifiers: Otitis media type: suppurative Chronicity: acute Laterality: bilateral Recurrence: non-recurrent Spontaneous tympanic membrane rupture: without spontaneous rupture Qualified Code(s): H66.003 - Acute suppurative otitis media without spontaneous rupture of ear drum, bilateral Disposition: Home, Self-Care Condition on Discharge: Good Instructions: Middle Ear Infection, DI for Sinusitis Additional Instructions: Drink plenty of fluids. Take tylenol or ibuprofen for pain or fever. Take the medications as directed. Follow up with your regular doctor. GO TO THE ER FOR ANY WORSENING SYMPTOMS Don't start the oral steroids until tomorrow, since you had the shot here today. Prescriptions: Doxycycline Hyclate [Doxycycline 100mg Capsule] 100 mg PO Q12 10 Days #20 cap Transmission Status: Received by [id number] methylPREDNISolone [Medrol] 4 mg PO DIRECTED 6 Days #21 [email or web address] Transmission Status: Received by [id number] Referrals: Anthony Contreras MD [Primary Care Provider] - Medical Decision Making - Medical Records Medical records reviewed: No: I reviewed the patient's medical records. - Miquel Inquiry Pt receiving controlled substance: No Vital Signs: 06/11/21 10:53 06/11/21 11:37 Temperature 98.4 F 98 F Temperature Source Oral Pulse Rate 79 Pulse Rate [Left] 74 Respiratory Rate 14 16 Blood Pressure 132/84 Blood Pressure [Right Arm] 132/84 Blood Pressure Mean [Right Arm] 100 Blood Pressure Position Left Lateral 02 Sat by Pulse Oximetry 97 - Lab Data Lab results reviewed: Yes: I reviewed the patient's lab results. Orders (Tests/Meds): ED MEDICATIONS Discontinued Medications Generic Name Dose Route Start Last Admin Trade Name Freq PRN Reason Stop Dose Admin Methylprednisolone Sodium Succinate 125 mg 06/11/21 11:03 06/11/21 11:29 Methylprednisolone Sod Succ 125mg Vial IM 06/11/21 11:04 125 mg ONCE ONE Administration [facility] HPI - General Stated complaint: congestion Time Seen by Provider: 06/11/21 10:58 Mode of Arrival: Ambulatory Source of Information: Patient Limitations: No Limitations Description of Symptoms (Recalled from Triage Doc. by RN): PT C/O OF SINUS CONGESTION, PRESSURE AND PAIN, WELL BILATERAL EAR PRESSURE AND PAIN. HE WAS TREATED AT [facility] ABOUT 3WKS AGO FOR A SINUS INFECTION. HE STATES HE JUST HASN'T BEEN ABLE TO FULL KICK IT AND IT NORMALLY TAKES A STEROID. HEENT Symptoms (Recalled from RN notes): Yes (SINUS/EAR PAIN/PRESSURE) Resp Symptoms (Recalled from RN notes): No Skin Symptoms (Recalled from RN notes): No MS Symptoms (Recalled from RN notes): No Functional Status (Recalled from RN notes): NA - History of Present Illness Provider Complaint: He states that he is not completely better after being treated for a sinus infection around 3 weeks ago. - Related Data Home Medications Medication Instructions Recorded Confirmed Atorvastatin Calcium [Atorvastatin 40 mg PO DAILY 05/21/18 05/12/21 40mg Tab] omeprazole 20 mg tablet,delayed 20 mg PO BID tab 01/09/21 05/12/21 release Previous Rx's Medication Instructions Recorded azithromycin 250 mg tablet 250 mg PO QDAY 5 Days #6 tab 05/12/21 Doxycycline Hyclate [Doxycycline 100 mg PO Q12 10 Days #20 cap 06/11/21 100mg Capsule] methylPREDNISolone [Medrol] 4 mg PO DIRECTED 6 Days #21 06/11/21 [email or web address] Allergies Allergy/AdvReac Type Severity Reaction Status Date / Time cefaclor [From CECLOR] Allergy Mild Rash Verified 05/12/21 16:32 Penicillins [PENICILLINS] Allergy Unknown Verified 05/12/21 16:32 - Worker's Comp Is this a Worker's Comp case?: No [facility] History - Hepatitis A Screen Drug use hi
[2021-06-11 11:37] VITALS: BP 132/84; PULSE 79; RESP 16; TEMP 36.6
== END 2021-06-11 11:39 | disposition home or self-care (01) ==
PROVIDERS: Emergency Provider Nurse Practitioner Family; PCP Family Medicine
DX: J01.90 Acute sinusitis, unspecified (principal); H66.003 Acute suppurative otitis media without spontaneous rupture of ear drum, bilateral; K21.9 Gastro-esophageal reflux disease without esophagitis; E78.5 Hyperlipidemia, unspecified; Z88.0 Allergy status to penicillin; Z79.899 Other long term (current) drug therapy
CPT/HCPCS: 99202; G0463

== ENCOUNTER 2021-07-24 09:55 | Emergency (ER) | payer OTHER, SELFPAY ==
[2021-07-24 09:55] VITALS: BP 132/90; PULSE 83; RESP 18; TEMP 36.7; O2SAT 98; BMI 32.5
--- NOTE | 2021-07-24 10:18 | XR_ITS ---
PROCEDURE: XR SHOULDER RT MIN 2V CLINICAL INDICATION: pain COMPARISON: No exams were available for comparison FINDINGS: No fracture or dislocation. No lytic or blastic change. There is normal mineralization. Mild osteoarthritic changes are present at the glenohumeral joint. A subchondral lucency is present at the greater tuberosity of the humerus consistent with a sub chondral cyst.. Other findings:None. IMPRESSION: Mild osteoarthritic changes Dictated by: Sarthak Lee MD 07/24/2021 11:15 Sarthak Lee MD in [place] 07/24/2021 11:15
--- NOTE | 2021-07-24 10:18 | XR_ITS ---
PROCEDURE: XR CHEST 2V CLINICAL HISTORY: cough COMPARISON: CR XR CHEST PORTABLE from 01/05/2021 FINDINGS: The cardiomediastinal silhouette and pulmonary vascularity are within normal limits. The lungs are clear without infiltrates, suspicious nodules, or pleural effusions. No acute bony abnormalities. IMPRESSION: No acute findings. Dictated by: Sarthak Lee MD 07/24/2021 11:22 Sarthak Lee MD in [place] 07/24/2021 11:22
--- NOTE | 2021-07-24 10:33 | HMH.EDGENADL ---
ED Disposition Clinical Impression: Right shoulder strain Qualifiers: Encounter type: initial encounter Qualified Code(s): S46.911A - Strain of unspecified muscle, fascia and tendon at shoulder and upper arm level, right arm, initial encounter Disposition: Home, Self-Care Condition on Discharge: Good Instructions: DI for Muscle Strain Referrals: Anthony Contreras MD [Primary Care Provider] - - Critical Care Critical Care Time: No Attestation: On 07/24/21, the high probability of a clinically significant, sudden or life threatening deterioration of the following system(s) required my full and direct attention, intervention and personal management. The time I documented below is in addition to time spent performing reported procedures but includes the following listed in this critical care notation. Medical Decision Making - Medical Records Medical records reviewed: Yes: I reviewed the patient's medical records. - Miquel Inquiry Pt receiving controlled substance: No Vital Signs: 07/24/21 09:55 Temperature 98.0 F Temperature Source Oral Pulse Rate [Left Radial] 83 Respiratory Rate 18 Blood Pressure [Right Arm] 132/90 Blood Pressure Mean [Right Arm] 104 Blood Pressure Source [Right Arm] Automatic Cuff Blood Pressure Position [Right Arm] Sitting 02 Sat by Pulse Oximetry 98 Oxygen Delivery Method Room Air - Lab Data Lab Results 07/24/21 10:35: WBC 6.9, RBC 5.32, Hgb 15.2, Hct 46.6, MCV 87.7, MCH 28.6, MCHC 32.6, RDW 13.4, Plt Count 344, MPV 7.5, Neut % (Auto) 60.2, Lymph % (Auto) 29.9, Petroleum % (Auto) 5.7, Eos % (Auto) 3.2, Baso % (Auto) 1.0, Neut # (Auto) 4.2, Lymph # (Auto) 2.1, Petroleum # (Auto) 0.4, Eos # (Auto) 0.2, Baso # (Auto) 0.1 07/24/21 10:35: Sodium 139, Potassium 4.3, Chloride 103, Carbon Dioxide 28, Anion Gap 12.3, BUN 11, Creatinine 1.00, Estimated Creat Clear 117, Estimated GFR 79, Est GFR ( Amer) 95, Glucose 107 H, Calcium 8.8, Total Bilirubin 0.4, AST 36, ALT 30, Alkaline Phosphatase 104, Troponin I < 0.01, Total Protein 7.6, Albumin 4.0, Globulin 3.6 H, Albumin/Globulin Ratio 1.1, Lipase 68 Result diagrams: 07/24/21 10:35 07/24/21 10:35 Orders (Tests/Meds): ORDERS Category Date Time Status Troponin I Q3H Lab 07/24/21 13:30 Ordered Troponin I Q3H Lab 07/24/21 16:30 Ordered - Radiology Data #1 Image(s): Chest, Shoulder Image Reviewed: Yes I reviewed the patient's radiology results, Yes I reviewed the patient's radiology image, Yes I have reviewed radiologist's interpretation IMPRESSION: Mild osteoarthritic changes IMPRESSION: No acute findings. - ECG Data Tracing #1 I reviewed this ECG and interpreted as documented below: ECG initial impression date: 07/24/21 ECG initial impression time: 11:50 ECG normal with no acute: arrhythmias, ischemia, conduction abnormalities, chamber hypertrophy Normal Sinus Rhythm: Yes - Reevaluation(s) Time: 12:05 Reevaluation #1: On reevaluation, patient is pain-free. Negative troponin. EKG normal. Patient follow-up with PCP in 48 hours. Given strict return precautions. Verbalized understanding. Medical Decision Narrative: 51-year-old male presented to the emergency department with some right shoulder discomfort. This appears to be more musculoskeletal in nature. It is reproducible. Patient is low risk for acute coronary syndrome based on heart score. Work-up initiated. General Adult HPI - General Chief complaint: PAIN Stated complaint: Right Arm Pain; Headache Time Seen by Provider: 07/24/21 10:00 Mode of Arrival: Ambulatory Limitations: No Limitations Description of Symptoms (Recalled from ER Triage Doc. by RN): right shoulder pain that goes around his shoulder into his right arm around his elbow and down his forearm. Pain started yesterday while driving lasting approx 30 minutes. Pain went away once he got home. Denies any injury - History of Present Illness HPI narrative: 51-year-old male presente
[2021-07-24 10:43] LABS: Basophils # 0.1 K/mm3 (0-0.2); Eosinophils # 0.2 K/mm3 (0.0-0.4); Eosinophils % 3.2 % (0.1-12.0); Hematocrit 46.6 % (42.0-52.0); Hemoglobin 15.2 g/dL (14.1-18.0); Lymphocytes # 2.1 K/mm3 (0.7-4.5); Lymphocytes % 29.9 % (10-50); Mean Corpuscular HGB Conc 32.6 g/dL (31.8-35.4); Mean Corpuscular Hemoglobin 28.6 pg (27.0-31.2); Mean Corpuscular Volume 87.7 fl (80-94); Mean Platelet Volume 7.5 fl (7.4-10.4); Monocytes # 0.4 K/mm3 (0.1-1.0); Monocytes % 5.7 % (1.7-9.3); Neutrophils # 4.2 K/mm3 (1.8-7.8); Neutrophils % 60.2 % (37.0-80.0); Platelet Count 344 K/mm3 (142-424); Red Blood Count 5.32 M/mm3 (4.60-6.20); Red Cell Distribution Width 13.4 % (11.5-17.5); White Blood Count 6.9 K/mm3 (4.8-10.8)
[2021-07-24 10:46] LABS: Chloride 103 mmol/L (98-107)
[2021-07-24 10:47] LABS: Potassium 4.3 mmoL/L (3.5-5.1); Sodium 139 mmol/L (136-145)
[2021-07-24 10:49] LABS: Alanine Aminotransferase 30 U/L (12-78); Alkaline Phosphatase 104 U/L (38-126); Anion Gap 12.3 mEq/L (5-15); Aspartate Amino Transferase 36 U/L (17-59); Bilirubin,Total 0.4 mg/dl (0.2-1.3); Blood Urea Nitrogen 11 mg/dl (9-20); Carbon Dioxide 28 mmol/L (22.0-30.0); Creatinine Clearance Estimated 117 mL/min (50-200); Estimated Glomerular Filt Rate 79 ml/min (>60); GFR (African American) 95 ML/MIN (>60); Lipase 68 U/L (23-300)
[2021-07-24 10:50] LABS: Albumin/Globulin Ratio 1.1 (1.1-1.8); Calcium 8.8 mg/dl (8.4-10.2); Globulin 3.6 g/dL (1.3-3.2); Glucose 107 mg/dl (74-100); Total Protein,Serum 7.6 g/dl (6.3-8.2)
[2021-07-24 11:10] LABS: Troponin I < 0.01 ng/ml (0.00-0.034)
--- NOTE | 2021-07-24 11:50 | ECG_ITS ---
APPROVED REPORT Exam: Resting ECG HR:61 bpm ECG Measurements Heart Rate 61 AXES MN 146 P 23 QRSd 90 QRS -6 QT 386 T 29 QTc 388 Conclusion Normal sinus rhythm Normal ECG Electronically signed by : Anthony Renteria MD 07/26/2021 21:10:27
[2021-07-24 12:16] VITALS: BP 145/78; PULSE 88; RESP 16; TEMP 36.6; O2SAT 98
== END 2021-07-24 12:17 | disposition home or self-care (01) ==
PROVIDERS: Emergency Provider Emergency Medicine; PCP Family Medicine
DX: S46.911A Strain of unspecified muscle, fascia and tendon at shoulder and upper arm level, right arm, initial encounter (principal); X50.0XXA Overexertion from strenuous movement or load, initial encounter; K21.9 Gastro-esophageal reflux disease without esophagitis; E78.5 Hyperlipidemia, unspecified; Z88.0 Allergy status to penicillin
CPT/HCPCS: 71046; 73030; 80053; 83690; 84484; 85025; 93005; 99283

== ENCOUNTER 2021-11-19 10:16 | Emergency (ER) | payer OTHER, SELFPAY ==
[2021-11-19 12:44] LABS: UTC Influenza A Antigen Negative (Negative); UTC Influenza B Antigen Negative (Negative)
[2021-11-19 12:45] VITALS: BP 115/77; PULSE 83; RESP 18; TEMP 37.7; O2SAT 97; BMI 32.8
--- NOTE | 2021-11-19 12:51 | HMH.EDUTC ---
[facility] [place] Disposition Clinical Impression: Otitis media Qualifiers: Otitis media type: unspecified Laterality: left Qualified Code(s): H66.92 - Otitis media, unspecified, left ear Disposition: Home, Self-Care Condition on Discharge: Good Instructions: Middle Ear Infection, DI for COVID-19 (Suspected or Confirmed ), Preventing the Spread of Coronavirus Discharge Instructions Additional Instructions: *Monitor Temp, Over the counter Motrin or Tylenol as directed/as needed Tylenol every 4 hours and Motrin every 6 hours (as long as your family doctor has told you that you can take it) for fever or pain. and straight to ER if unable to lower temp less than 101.0 after medication given *Warm salt water gargles may help to soothe the throat *Throat Lozenges *Warm fluids like tea with honey may help to soothe the throat *Sleep elevated *Humidifier/Vaporizer Follow up IMMEDIATELY for new or worsening symptoms or no Noticeable improvement over the next 48-72 hours. 911 for difficulty breathing or swallowing You were tested for today for COVID19 your test result should be back in the next 24-48 hours, you may check your results on the [facility] My Health Portal if you have trouble logging on you may call [employer] support for assistance You was given a handout with instructions for Self Quarantine and Self isolation for while you wait on test results and what to do if they are positive If you are positive the Health Dept will be contacting you also Make sure to take your Vitamins Vit. C Vit D and Zinc if you can take them Prescriptions: methylPREDNISolone [Medrol 4mg tab] 4 mg PO DIRECTED #21 tab Transmission Status: Pending to [facility] Azithromycin [Z-Aly 250mg Tab] 250 mg PO DIRECTED #6 tab Transmission Status: Pending to [facility] Referrals: Anthony Contreras MD [Primary Care Provider] - As needed Forms: Work/School Release Time of Disposition: 12:55 Medical Decision Making - Miquel Inquiry Pt receiving controlled substance: No Miquel was queried for this patient: No Vital Signs: 11/19/21 12:45 Temperature 100 F H Temperature Source Oral Pulse Rate [Left] 83 Respiratory Rate 18 Blood Pressure [Right Arm] 115/77 Blood Pressure Mean [Right Arm] 89 02 Sat by Pulse Oximetry 97 - Lab Data Lab results reviewed: Yes: I reviewed the patient's lab results. Lab Results 11/19/21 12:38: Influenza Type A Ag Negative, Influenza Type B Ag Negative Orders (Tests/Meds): ORDERS Category Date Time Status Covid-19 Nasal PCR ([facility]) Routine Lab 11/19/21 12:37 Ordered [facility] UTC HPI - General Stated complaint: h/a, body aches, congestion Time Seen by Provider: 11/19/21 12:51 Mode of Arrival: Ambulatory Source of Information: Patient Limitations: No Limitations Description of Symptoms (Recalled from Triage Doc. by RN): pt c/o LOPEZ, chills, body aches and nausea since yesterday. HEENT Symptoms (Recalled from RN notes): Yes (LOPEZ) Resp Symptoms (Recalled from RN notes): No Skin Symptoms (Recalled from RN notes): No MS Symptoms (Recalled from RN notes): No Functional Status (Recalled from RN notes): wnl - History of Present Illness Provider Complaint: Patient states that he hasnt felt well for the last couple of days having pain/pressure in his left ear State that then yesterday he started having body aches, chills and headache States that he was worried he may have COVID or flu so he came in today when he was still not feeling well - Related Data Home Medications Medication Instructions Recorded Confirmed Atorvastatin Calcium [Atorvastatin 40 mg PO DAILY 05/21/18 05/12/21 40mg Tab] omeprazole 20 mg tablet,delayed 20 mg PO BID tab 01/09/21 05/12/21 release Previous Rx's Medication Instructions Recorded azithromycin 250 mg tablet 250 mg PO QDAY 5 Days #6 tab 05/12/21 Doxycycline Hyclate [Doxycycline 100 mg PO Q12 10 Days #20 cap 06/11/21 100mg Capsule] methylPREDNISo
[2021-11-19 13:01] VITALS: BP 115/77; PULSE 83; RESP 18; TEMP 37.7
== END 2021-11-19 13:02 | disposition home or self-care (01) ==
PROVIDERS: Emergency Provider Nurse Practitioner; PCP Family Medicine
DX: U07.1 COVID-19 (principal); H66.92 Otitis media, unspecified, left ear; K21.9 Gastro-esophageal reflux disease without esophagitis; E78.5 Hyperlipidemia, unspecified
CPT/HCPCS: 87804; 99202; C9803; G0463; U0003; U0005

== ENCOUNTER → 2021-12-07 10:09 | Outpatient (CLI) | payer OTHER, SELFPAY ==
--- NOTE | 2021-12-07 10:13 | XR_ITS ---
FINAL REPORT CLINICAL HISTORY: CTR, wrist pain FINDINGS: LEFT WRIST Three views demonstrate no acute fracture or dislocation. The visualized joint spaces are normally aligned. The soft tissues are unremarkable. IMPRESSION: No acute bony abnormality. Reviewed, Interpreted and Dictated by Jimmy Braxton III, MD Transcribed by Sushant Pina Authenticated by Jimmy Braxton III, MD on 12/07/2021 11:24:08 AM [facility]
== END ==
PROVIDERS: PCP Family Medicine; Visit Provider Orthopaedic Surgery
DX: G56.02 Carpal tunnel syndrome, left upper limb (principal)
CPT/HCPCS: 73110

== ENCOUNTER 2021-12-07 12:46 | Outpatient (RCR) | payer OTHER, SELFPAY | END 2021-12-07 13:42 | disposition home or self-care (01) | LOC: OT 12:46 | PROVIDERS: Visit Provider Orthopaedic Surgery | DX: G56.02 Carpal tunnel syndrome, left upper limb (principal) | CPT/HCPCS: 97763 ==

== ENCOUNTER 2022-08-07 16:35 | Emergency (ER) | payer OTHER, SELFPAY ==
[2022-08-07 16:40] VITALS: BP 119/76; PULSE 76; RESP 18; TEMP 36.7; O2SAT 98; BMI 31.1
--- NOTE | 2022-08-07 17:18 | EXP.UTC ---
Discharge Plan Disposition Patient Disposition: Home, Self-Care Condition: Good Prescriptions Prescriptions: New fluticasone propionate [Flonase Allergy Relief] 50 mcg/actuation spray,suspension 1 spray intranasal Q12H Qty: 16 0RF Rx Instructions: administer into each nostril Stahist AD 25-60 mg tablet 1 tab PO .6-8 hours MDD 3 tablets a day Qty: 30 0RF No Action omeprazole 20 mg tablet,delayed release (DR/EC) 20 mg PO BID Rx Instructions: take one hour before meals atorvastatin 40 MG tablet 40 mg PO DAILY Referrals Follow up/Referrals: Pretty Soto MD [Primary Care Provider] - See instructions Clinical Impressions Clinical Impression: Acute dysfunction of both eustachian tubes Sinusitis Qualifiers: Sinusitis location: pansinusitis Chronicity: acute Recurrence: not specified as recurrent Qualified Code(s): J01.40 - Acute pansinusitis, unspecified Instructions Patient Instructions: DI for Sinusitis, Sinus Headache Discharge ED Provider: Magda Grigsby [facility] General Stated complaint: sinus symptoms Mode of Arrival: Ambulatory Source of Information: Patient Limitations: No Limitations Time Seen by Provider: 08/07/22 17:17 Description of Symptoms (Recalled from Triage Doc. by RN): PATIENT C/O HEADACHE AND BILATERAL EAR PAIN X 2 DAYS HEENT Symptoms (Recalled from RN notes): Yes Resp Symptoms (Recalled from RN notes): No Skin Symptoms (Recalled from RN notes): No MS Symptoms (Recalled from RN notes): No Functional Status (Recalled from RN notes): WNL History of Present Illness Provider Complaint: Pt states that he has known allergies and takes Zyrtec daily. He reports that for the last couple of days he has has clear sinus drainage, post nasal drip, and ear pain. He states that his head has been hurting him as well. He denies any sick contact. Related Data Home Medications Medication Instructions Recorded Confirmed atorvastatin 40 mg tablet 40 mg PO DAILY Cholesterol 05/21/18 01/16/22 omeprazole 20 mg tablet,delayed 20 mg PO BID GERD 01/09/21 01/16/22 release Previous Rx's Medication Instructions Recorded chlorcyclizine-pseudoephedrine 25 1 tab PO .6-8 hours sinus symptoms 08/07/22 mg-60 mg tablet (Stahist AD) #30 tabs fluticasone propionate 50 1 spray intranasal Q12H #16 grams 08/07/22 mcg/actuation nasal spray,suspension (Flonase Allergy Relief) Allergies Allergy/AdvReac Type Severity Reaction Status Date / Time cefaclor [From [facility]] Allergy Mild Rash Verified 01/16/22 11:00 Penicillins [PENICILLINS] Allergy Unknown Verified 01/16/22 11:00 Worker's Comp Is this a Worker's Comp case?: No PFSH PFSH 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 (Updated 08/07/22 @ 17:32 by Magda Grigsby APRN) Gastroesophageal reflux disease HLD (hyperlipidemia) Kidney stone Surgical History (Updated 08/07/22 @ 16:53 by Sue Cage, RN) History of back surgery History of tonsillectomy Social History (Updated 08/07/22 @ 16:54 by Sue Cage, RN) Smoking Status: Never smoker alcohol intake: current substance use type: denies use current occupational status: employed Travel in the last 8 weeks: None household members: spouse housing: house 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 caffeine: Yes ROS Obtained: Yes All systems reviewed & no additional complaints except as documented Constitutional Constitutional: Reports as per HPI and Reports headache(s) Eyes Eyes: Reports system reviewed and no additional complaints, except as documented ENT Ears, Nose, Mouth, and Throat: Reports as per HPI, Reports otalgia, Reports headache(s), Reports nasal congestion, Reports nasal discharge and Reports post nasal drip Cardiovascular Cardiovascular: Reports system reviewed and no additional complaints, except as documented Respiratory Respiratory: Reports system reviewed and no additional complaints, except as documented Gastrointestinal Gastroin
[2022-08-07 17:25] VITALS: BP 119/76; PULSE 76; RESP 18; TEMP 36.7; O2SAT 98
== END 2022-08-07 17:35 | disposition home or self-care (01) ==
PROVIDERS: Emergency Provider Nurse Practitioner Family; PCP Family Medicine
DX: J01.40 Acute pansinusitis, unspecified (principal)
CPT/HCPCS: 99212; G0463

== ENCOUNTER 2022-08-18 08:22 | Emergency (ER) | payer OTHER, SELFPAY ==
--- NOTE | 2022-08-18 08:34 | EXP.UTC ---
Discharge Plan Disposition Patient Disposition: Home, Self-Care Condition: Good Prescriptions Prescriptions: New azithromycin [Zithromax] 250 mg tablet 250 mg PO UD DOSE PK Qty: 6 0RF Rx Instructions: Take two (2) tablets today, then one (1) tablet days #2 thru #5 benzonatate [benzonatate] 100 mg capsule 100 mg PO TIDP PRN (Reason: Cough) Qty: 30 0RF methylprednisolone 4 mg Tablets,Dose Pack 4 mg PO DIRECTED Qty: 21 0RF No Action omeprazole 20 mg tablet,delayed release (DR/EC) 20 mg PO BID Rx Instructions: take one hour before meals atorvastatin 40 MG tablet 40 mg PO DAILY fluticasone propionate [Flonase Allergy Relief] 50 mcg/actuation spray,suspension 1 spray intranasal Q12H Qty: 16 0RF Rx Instructions: administer into each nostril Stahist AD 25-60 mg tablet 1 tab PO .6-8 hours MDD 3 tablets a day Qty: 30 0RF Referrals Follow up/Referrals: Pretty Soto MD [Primary Care Provider] - See instructions Activity Restrictions/Add. Instructions Additional Instructions/Restrictions: Drink plenty of fluids. Take tylenol or ibuprofen for pain or fever. Take the medications as directed. Follow up with your regular doctor. GO TO THE ER FOR ANY WORSENING SYMPTOMS Clinical Impressions Clinical Impression: Sinusitis, Bronchitis Instructions Patient Instructions: Sinusitis, DI for Sinusitis Discharge ED Provider: Jeffrey Wood [facility] [place] HPI General Stated complaint: headache, body aches, congestion Time Seen by Provider: 08/18/22 08:43 History of Present Illness Provider Complaint: He states that for the past 7 days he has had sinus congestion and now he is starting to have chest congestion. Related Data Home Medications Medication Instructions Recorded Confirmed atorvastatin 40 mg tablet 40 mg PO DAILY Cholesterol 05/21/18 08/18/22 omeprazole 20 mg tablet,delayed 20 mg PO BID GERD 01/09/21 08/18/22 release Previous Rx's Medication Instructions Recorded chlorcyclizine-pseudoephedrine 25 1 tab PO .6-8 hours sinus symptoms 08/07/22 mg-60 mg tablet (Stahist AD) #30 tabs fluticasone propionate 50 1 spray intranasal Q12H #16 grams 08/07/22 mcg/actuation nasal spray,suspension (Flonase Allergy Relief) azithromycin 250 mg tablet 250 mg PO UD DOSE PK #6 tabs 08/18/22 (Zithromax) benzonatate 100 mg capsule 100 mg PO TIDP PRN Cough #30 caps 08/18/22 methylprednisolone 4 mg tablets in 4 mg PO DIRECTED #21 tabs 08/18/22 a dose pack Allergies Allergy/AdvReac Type Severity Reaction Status Date / Time cefaclor [From [facility]] Allergy Mild Rash Verified 08/18/22 08:44 Penicillins [PENICILLINS] Allergy Unknown Verified 08/18/22 08:44 [facility] 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 Gastroesophageal reflux disease HLD (hyperlipidemia) Kidney stone Surgical History History of back surgery History of tonsillectomy Social History Smoking Status: Never smoker alcohol intake: current substance use type: denies use current occupational status: employed Travel in the last 8 weeks: None household members: spouse housing: house 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 caffeine: Yes ROS Obtained: Yes All systems reviewed & no additional complaints except as documented Constitutional Constitutional: Reports chills and Reports fever(s) Eyes Eyes: Denies eye discharge ENT Ears, Nose, Mouth, and Throat: Reports as per HPI Cardiovascular Cardiovascular: Denies chest pain Respiratory Respiratory: Denies chest congestion and Reports cough Gastrointestinal Gastrointestingal: Reports nausea; Denies abdominal pain, constipation, cramping, diarrhea or vomiting Musculoskeletal Musculoskeletal: Denies arthralgias Integumentary/Breasts Skin/Breast: Denies rash Neurologic Neurologic: De
[2022-08-18 08:40] VITALS: BP 126/78; PULSE 87; RESP 17; TEMP 37.3; O2SAT 96; BMI 33.3
[2022-08-18 08:47] LABS: UTC Strep Screen (Rapid) Negative (Negative)
[2022-08-18 08:55] LABS: UTC Influenza A Antigen Negative (Negative)
[2022-08-18 08:56] LABS: UTC Influenza B Antigen Negative (Negative)
[2022-08-18 09:13] VITALS: BP 126/78; PULSE 87; RESP 17; TEMP 37.3
== END 2022-08-18 09:13 | disposition home or self-care (01) ==
PROVIDERS: Emergency Provider Nurse Practitioner Family; PCP Family Medicine
DX: R51.9 Headache, unspecified (principal); R05.9 Cough, unspecified; M79.10 Myalgia, unspecified site; K21.9 Gastro-esophageal reflux disease without esophagitis; E78.5 Hyperlipidemia, unspecified; Z79.51 Long term (current) use of inhaled steroids; Z79.52 Long term (current) use of systemic steroids; Z79.899 Other long term (current) drug therapy; Z88.0 Allergy status to penicillin; Z88.8 Allergy status to other drugs, medicaments and biological substances
CPT/HCPCS: 87804; 87880; 96372; 99213; G0463

== ENCOUNTER 2022-10-29 18:17 | Emergency (ER) | payer OTHER, SELFPAY ==
[2022-10-29 19:40] VITALS: BP 130/76; PULSE 78; RESP 19; TEMP 36.6; O2SAT 98; BMI 29.1
--- NOTE | 2022-10-29 20:13 | EXP.UTC ---
Discharge Plan Disposition Patient Disposition: Home, Self-Care Condition: Good Prescriptions Prescriptions: New erythromycin 5 mg/gram (0.5 %) ointment 0.5 inch ophthalmic (eye) QID 7 Days Qty: 3.5 0RF Rx Instructions: apply to left eye as directed No Action omeprazole 20 mg tablet,delayed release (DR/EC) 20 mg PO BID Rx Instructions: take one hour before meals azithromycin [Zithromax] 250 mg tablet 250 mg PO UD DOSE PK Qty: 6 0RF Rx Instructions: Take two (2) tablets today, then one (1) tablet days #2 thru #5 benzonatate [benzonatate] 100 mg capsule 100 mg PO TIDP PRN (Reason: Cough) Qty: 30 0RF methylprednisolone 4 mg Tablets,Dose Pack 4 mg PO DIRECTED Qty: 21 0RF atorvastatin 40 MG tablet 40 mg PO DAILY fluticasone propionate [Flonase Allergy Relief] 50 mcg/actuation spray,suspension 1 spray intranasal Q12H Qty: 16 0RF Rx Instructions: administer into each nostril Stahist AD 25-60 mg tablet 1 tab PO .6-8 hours MDD 3 tablets a day Qty: 30 0RF Referrals Follow up/Referrals: Pretty Soto MD [Primary Care Provider] - See instructions Activity Restrictions/Add. Instructions Additional Instructions/Restrictions: Remove patch tomorrow and apply ointment inside eye as directed Follow up with your Eye Doctor if no improvment or any worsening of symptoms Return if needed Straight to ER if any life threatening symptoms Clinical Impressions Clinical Impression: Eye problem Instructions Patient Instructions: Erythromycin Ophthalmic, DI for Corneal Abrasion Discharge ED Provider: Nicole Hernandez [facility] [place] HPI General Stated complaint: pain in left eye no accident Mode of Arrival: Ambulatory Source of Information: Patient Limitations: No Limitations Time Seen by Provider: 10/29/22 20:13 Description of Symptoms (Recalled from Triage Doc. by RN): PATIENT STATES HE POSSIBLY GOT SAW DUST IN HIS LEFT EYE TODAY. HE REPORTS HE FLUSHED HIS EYE BUT IT FEELS LIKE IT MAY BE SCRATCHED. HEENT Symptoms (Recalled from RN notes): Yes Resp Symptoms (Recalled from RN notes): No Skin Symptoms (Recalled from RN notes): No MS Symptoms (Recalled from RN notes): No Functional Status (Recalled from RN notes): WNL History of Present Illness Provider Complaint: Patient states that he was handling some lumber earlier and thinks some sawdust off the 2x6 fell into his left eye States that he blinked a couple times thinking it would come out and then he flushed it will 3 bottles of water but thinks it may have scratched his eye States that he is still having pain in the eye like it is irritated or something Related Data Home Medications Medication Instructions Recorded Confirmed atorvastatin 40 mg tablet 40 mg PO DAILY Cholesterol 05/21/18 08/18/22 omeprazole 20 mg tablet,delayed 20 mg PO BID GERD 01/09/21 08/18/22 release Previous Rx's Medication Instructions Recorded chlorcyclizine-pseudoephedrine 25 1 tab PO .6-8 hours sinus symptoms 08/07/22 mg-60 mg tablet (Stahist AD) #30 tabs fluticasone propionate 50 1 spray intranasal Q12H #16 grams 08/07/22 mcg/actuation nasal spray,suspension (Flonase Allergy Relief) azithromycin 250 mg tablet 250 mg PO UD DOSE PK #6 tabs 08/18/22 (Zithromax) benzonatate 100 mg capsule 100 mg PO TIDP PRN Cough #30 caps 08/18/22 methylprednisolone 4 mg tablets in 4 mg PO DIRECTED #21 tabs 08/18/22 a dose pack erythromycin 5 mg/gram (0.5 %) eye 0.5 inch ophthalmic (eye) QID 7 10/29/22 ointment days #3.5 grams Allergies Allergy/AdvReac Type Severity Reaction Status Date / Time cefaclor [From [facility]] Allergy Mild Rash Verified 08/18/22 08:44 Penicillins [PENICILLINS] Allergy Unknown Verified 08/18/22 08:44 Worker's Comp Is this a Worker's Comp case?: No [facility] Disclaimer: The information contained in this section may have been updated after the patient was seen, as this information can be updated by other us
[2022-10-29 20:50] VITALS: BP 130/76; PULSE 78; RESP 19; TEMP 36.6; O2SAT 98
== END 2022-10-29 20:54 | disposition home or self-care (01) ==
PROVIDERS: Emergency Provider Nurse Practitioner; PCP Family Medicine
DX: H57.9 Unspecified disorder of eye and adnexa (principal); H92.02 Otalgia, left ear
CPT/HCPCS: 99212; G0463

== ENCOUNTER → 2022-12-21 10:23 | Outpatient (CLI) | payer OTHER, SELFPAY ==
--- NOTE | 2022-12-21 10:28 | XR_ITS ---
FINAL REPORT CLINICAL HISTORY: pain - r/o carpal tunnel syndrome COMPARISON: 12/07/2021 FINDINGS: LEFT WRIST Three views demonstrate no acute fracture or dislocation. The visualized joint spaces are normally aligned. There is mild degenerative change. The soft tissues are unremarkable. IMPRESSION: Degenerative change with no acute bony abnormality. Reviewed, Interpreted and Dictated by Jimmy Braxton III, MD Transcribed by Rohini Aden Authenticated and [facility]
== END ==
PROVIDERS: PCP Family Medicine; Visit Provider Orthopaedic Surgery
DX: M25.532 Pain in left wrist (principal)
CPT/HCPCS: 73110

== ENCOUNTER → 2022-12-28 09:31 | Outpatient (CLI) | payer OTHER, SELFPAY ==
[2022-12-28 09:38] LABS: Microscopic, Urine URINE MICROSCOPIC (MICROSCOPIC)
[2022-12-28 09:55] LABS: Basophils # 0.1 K/mm3 (0-0.2); Basophils % 1.8 % (0.1-2.0); Eosinophils # 0.4 K/mm3 (0.0-0.4); Eosinophils % 6.3 % (0.1-12.0); Hematocrit 46.6 % (42.0-52.0); Hemoglobin 15.1 g/dL (14.1-18.0); Lymphocytes # 2.5 K/mm3 (0.7-4.5); Lymphocytes % 36.8 % (10-50); Mean Corpuscular HGB Conc 32.4 g/dL (31.8-35.4); Mean Corpuscular Hemoglobin 28.6 pg (27.0-31.2); Mean Corpuscular Volume 88.1 fl (80-94); Mean Platelet Volume 7.5 fl (7.4-10.4); Monocytes # 0.4 K/mm3 (0.1-1.0); Neutrophils # 3.3 K/mm3 (1.8-7.8); Neutrophils % 49.1 % (37.0-80.0); Platelet Count 328 K/mm3 (142-424); Red Blood Count 5.29 M/mm3 (4.60-6.20); White Blood Count 6.7 K/mm3 (4.8-10.8)
[2022-12-28 09:58] LABS: Appearance,Urine CLEAR (Clear); Bilirubin,Urine Negative (Negative); Blood, Urine Negative (Negative); Color,Urine YELLOW (Yellow); Glucose,Urine (UA) Negative (Negative); Ketones,Urine Negative (Negative); Leukocyte Esterase,Urine Negative (Negative); Nitrate,Urine Negative (Negative); Protein,Urine Negative (Negative); Specific Gravity, Urine >= 1.030 (1.005-1.030)
[2022-12-28 10:12] LABS: Bacteria,Urine Trace /lpf; Squamous Epithelial Cell,Urine Occasional #/hpf (0-5); WBC,Urine Occasional #/hpf (0-3)
[2022-12-28 10:58] LABS: Alanine Aminotransferase 39 U/L (12-78); Albumin Level 4.1 g/dl (3.5-5.0); Albumin/Globulin Ratio 1.3 (1.1-1.8); Alkaline Phosphatase 100 U/L (38-126); Anion Gap 8.7 mEq/L (5-15); Aspartate Amino Transferase 38 U/L (17-59); Bilirubin,Total 0.7 mg/dl (0.2-1.3); Blood Urea Nitrogen 18 mg/dl (9-20); Carbon Dioxide 28 mmol/L (22.0-30.0); Chloride 105 mmol/L (98-107); Estimated Glomerular Filt Rate 78 ml/min (>60); GFR (African American) 95 ML/MIN (>60); Globulin 3.1 g/dL (1.3-3.2); Glucose 106 mg/dl (74-100); Potassium 4.7 mmoL/L (3.5-5.1); Sodium 137 mmol/L (136-145); Total Protein,Serum 7.2 g/dl (6.3-8.2)
== END ==
PROVIDERS: PCP Family Medicine; Visit Provider Orthopaedic Surgery
DX: Z01.818 Encounter for other preprocedural examination (principal)
CPT/HCPCS: 36415; 80053; 81001; 85025

== ENCOUNTER 2023-01-11 06:07 | Day surgery (SDC) | payer OTHER, SELFPAY ==
[2023-01-09 09:44] VITALS: BMI 32.5
[2023-01-11 06:25] VITALS: BP 125/77; PULSE 66; RESP 18; TEMP 36.2; O2SAT 96
--- NOTE | 2023-01-11 07:16 | P.PN_ITS ---
[facility] Disclaimer: The information contained in this section may have been updated after the patient was seen, as this information can be updated by other users. 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 Anesthesia Checklist Patient Identification Patient Identification: Arm Band and Verbal (Name & ) Structural Data Admitted From: Home Planned Operative Procedure/s: CTR Consent for Planned Operative Procedure(s) Verified: Yes NPO Status Verified Time NPO: 00:00 Additional verifications Anesthesia Reactions: No Hx Blood Transfusions: No Blood Transfusion Reaction: No Airway Assessment C-Spine Mobility Assessed: Yes TMJ Mobility Assessed: Yes Dentition: Good Dentition Neurological Assessment Level of Consciousness: Awake Hx Seizures: No Numbness or tingling in extremities: No Anesthesia Plan Anesthesia Risk discussed: Yes Anesthesia Plan: Verified ASA Class: II Anesthesia Type: MAC
[2023-01-11 08:34] VITALS: BP 102/56; PULSE 73; RESP 16; TEMP 36.6; O2SAT 95
[2023-01-11 08:49] VITALS: BP 125/81; PULSE 71; RESP 17; O2SAT 95
[2023-01-11 09:04] VITALS: BP 145/93; PULSE 69; RESP 17; O2SAT 95
[2023-01-11 09:34] VITALS: BP 125/81; PULSE 71; RESP 17; O2SAT 94
[2023-01-11 10:04] VITALS: BP 133/90; PULSE 69; RESP 16; O2SAT 95
--- NOTE | 2023-01-11 11:48 | P.OP_ITS ---
Date of procedure: 01/11/23 Pre-op Diagnosis:: Left carpal tunnel syndrome Post-op Diagnosis:: Same Procedure performed:: [id number]: Left endoscopic carpal tunnel release Surgeon:: Andrea Joya JR, MD FISH BONING MACHINE FEEDER:: Neel Terrell Anesthesia: MAC Estimated blood loss (mL): 3 Clinical Note:: 52-year-old male with bilateral carpal tunnel syndrome, status post right carpal tunnel release. 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 He had failed previous injections. He was interested in more durable intervention. I recommended left endoscopic carpal tunnel release. He was amenable with the plan. We discussed the risk and benefits of surgery. Risks included but were not limited to pain, bleeding, infection, damage to adjacent structures, need for further surgery, wound healing complications, loss of limb, . Patient expressed verbal consent and written consent was obtained for the above procedure. Operative findings:: Transverse carpal ligament transection confirmed endoscopically, directly visually and with palpation. Operative note:: Patient was identified in preoperative holding. Operative site was marked in indelible ink. History, physical, consent were reviewed and updated. Patient was surrendered to the anesthesia team, taken to the operative suite, placed supine on a well-padded operative table. A nonsterile tourniquet placed on the proximal brachium. Anesthesia was induced. The operative extremity was prepped and draped in the usual sterile fashion. The operative team donned sterile gowns and gloves and a timeout was called. All in attendance agreed regarding the patient's identity, procedure, operative site. Weight-based dose of antibiotics was given prior to incision. I made a transverse incision at the proximal wrist crease proximal to the transverse carpal ligament. I bluntly dissected through skin and subcutaneous tissue with care taken to avoid injuring the palmaris longus. I transected the fascia, inserted a dilating probe deep to the transverse carpal ligament and noted its depth distal to the transverse carpal ligament. I then inserted a cannula and scope, visualize the fibers of the transverse carpal ligament. I took to the distal aspect of the transverse carpal ligament to confirm its location, then with a curved blade under endoscopic visualization, transected the fibers of the transverse carpal ligament and noted that they retracted medially and laterally. I removed the cannula, achieved hemostasis, closed with Monocryl, Prineo and Dermabond. Dressings were applied. Counts were correct x2. There were no apparent complications. I was present scrubbed for the entire case. Postoperatively, plan to leave dressing in place for 5 days, then remove all but Prineo. Okay to shower but do not soak wound at that point. Finger mobility, limit weightbearing to 10 pounds until follow-up in 2 weeks at which point I anticipate initiating physical therapy. Condition: stable Disposition: PACU Specimens:: none Complications:: None apparent
== END 2023-01-11 10:30 | disposition home or self-care (01) ==
PROVIDERS: PCP Family Medicine; Visit Provider Orthopaedic Surgery
PROC: (CPT 64721; principal; 2023-01-11 07:30)
DX: G56.02 Carpal tunnel syndrome, left upper limb (principal); M25.532 Pain in left wrist; Z79.899 Other long term (current) drug therapy; E78.5 Hyperlipidemia, unspecified
CPT/HCPCS: 64721; 96374

== ENCOUNTER → 2023-07-15 16:21 | Outpatient (CLI) | payer OTHER, SELFPAY ==
[2023-07-15 19:38] LABS: Basophils % 0.4 % (0.1-2.0); Eosinophils # 0.4 K/mm3 (0.0-0.4); Eosinophils % 4.9 % (0.1-12.0); Hematocrit 48.9 % (42.0-52.0); Hemoglobin 15.8 g/dL (14.1-18.0); Lymphocytes # 2.5 K/mm3 (0.7-4.5); Mean Corpuscular HGB Conc 32.4 g/dL (31.8-35.4); Mean Corpuscular Hemoglobin 28.3 pg (27.0-31.2); Mean Corpuscular Volume 87.3 fl (80-94); Mean Platelet Volume 9.2 fl (7.4-10.4); Monocytes # 0.5 K/mm3 (0.1-1.0); Monocytes % 6.6 % (1.7-9.3); Neutrophils % 54.1 % (37.0-80.0); Platelet Count 317 K/mm3 (142-424); Red Cell Distribution Width 13.1 % (11.5-17.5); White Blood Count 7.4 K/mm3 (4.8-10.8)
[2023-07-15 19:49] LABS: Alanine Aminotransferase 40 U/L (12-78); Albumin Level 4.5 g/dl (3.5-5.0); Albumin/Globulin Ratio 1.1 (1.1-1.8); Alkaline Phosphatase 93 U/L (38-126); Anion Gap 16.1 mEq/L (5-15); Aspartate Amino Transferase 41 U/L (17-59); Bilirubin,Total 0.4 mg/dl (0.2-1.3); Blood Urea Nitrogen 19 mg/dl (9-20); Calcium 9.2 mg/dl (8.4-10.2); Carbon Dioxide 23 mmol/L (22.0-30.0); Chloride 105 mmol/L (98-107); Chol/HDL Ratio 5.9 (1-3.5); Cholesterol 308 mg/dl (140-200); Estimated Glomerular Filt Rate 88 ml/min (>60); GFR (African American) 107 ML/MIN (>60); Globulin 4.2 g/dL (1.3-3.2); Glucose 96 mg/dl (74-100); HDL Cholesterol 52 mg/dl (40-60); Potassium 4.1 mmoL/L (3.5-5.1); Sodium 140 mmol/L (136-145); Total Protein,Serum 8.7 g/dl (6.3-8.2); Triglycerides 244 mg/dl (30-150); VLDL Cholesterol 49 mg/dL (0-40)
[2023-07-15 20:00] LABS: Direct LDL Cholesterol 166.74 mg/dL (100-129)
[2023-07-15 20:07] LABS: 25-OH Vitamin D, Total 53.4 ng/mL (30-100)
[2023-07-15 20:20] LABS: Prostate Specific Ag Screen 2.2 ng/ml (0.0-4.0); Thyroid Stimulating Hormone 1.52 uIU/mL (0.465-4.68)
[2023-07-15 21:18] LABS: Erythrocyte Sedimentation Rate 13 mm/hr (0-20)
[2023-07-17 09:15] LABS: RA Latex Turbid. <10.0 IU/mL (<14.0); Testosterone,Total 460 ng/dL (264-916)
[2023-07-17 12:50] LABS: C-Reactive Protein 3.2 mg/L (0-4)
[2023-07-17 13:45] LABS: Anti-Centromere B Antibodies <0.2 AI (0.0-0.9); Anti-Cyclic Citrullinated Pept 16 units (0-19); Anti-DNA (DS) Ab Qn 1 IU/mL (0-9); Anti-Jo-1 <0.2 AI (0.0-0.9); Anti-Smith Antibody <0.2 AI (0.0-0.9); Antichromatin Antibodies <0.2 AI (0.0-0.9); Antiscleroderma-70 Antibodies <0.2 AI (0.0-0.9); RNP Antibodies <0.2 AI (0.0-0.9); Sjogren's Anti-SS-A 0.3 AI (0.0-0.9); Sjogren's Anti-SS-B <0.2 AI (0.0-0.9)
== END ==
PROVIDERS: PCP Physician Assistant; Visit Provider Physician Assistant
DX: M25.50 Pain in unspecified joint (principal); Z68.31 Body mass index [BMI] 31.0-31.9, adult
CPT/HCPCS: 80053; 80061; 82306; 84403; 84443; 85025; 85651; 86140; 86200; 86225; 86235; 86431; G0103

== ENCOUNTER 2024-01-11 08:00 | Emergency (ER) | payer SELFPAY ==
[2024-01-11 08:10] VITALS: BP 144/89; PULSE 78; RESP 19; TEMP 36.6; O2SAT 98; BMI 32.8
[2024-01-11 08:24] VITALS: BP 144/89; PULSE 78; RESP 19; TEMP 36.6; O2SAT 98
--- NOTE | 2024-01-11 08:25 | ED_ITS ---
Discharge Plan Disposition Patient Disposition: Home, Self-Care Condition: Good Prescriptions Prescriptions: New azithromycin 250 mg tablet 250 mg PO DIRECTED Qty: 6 0RF Rx Instructions: Take two (2) tablets on day #1, then one (1) tablet day #2 thru #5 No Action aspirin 81 mg tablet,delayed release (DR/EC) 81 mg PO DAILY prednisone 20 mg tablet 20 mg PO BID Qty: 10 0RF Rx Instructions: administer with food or milk azithromycin [Zithromax Z-Aly] 250 mg tablet See Rx Instructions PO .COMPLEX Qty: 6 0RF Rx Instructions: For 250 mg dose pack: take 500 mg today (day 1), then 250 mg for 4 days (days 2-5) PO omeprazole 40 mg capsule,delayed release(DR/EC) 40 mg PO DAILY acyclovir 5 % ointment 1 applic topical 6XD 7 Days Qty: 15 2RF gvtwbydjwa-fjsaexwh-unvxwamins 160-9-4.8 mcg/actuation HFA aerosol inhaler 2 inh inhalation BID Qty: 5.9 2RF atorvastatin [Lipitor] 10 mg tablet 10 mg PO HS Qty: 90 3RF Referrals Follow up/Referrals: Paty Torres PA [Primary Care Provider] - See instructions Activity Restrictions/Add. Instructions Additional Instructions/Restrictions: Start antibiotics today be sure to take it as ordered with the full length of time although you should start feeling better in 24-48 hours. Change toothbrush and toothpaste 24-48 hours after starting antibiotics Tylenol or Motrin as needed for fever or pain Encourage fluids, water, Gatorade, Powerade, try cold fluids, popsicles, ice cream will make it feel better You are contagious for 24 hours. Avoid kissing anyone, no eating or drinking after anyone. You are contagious. Follow-up the ER for new or worsening symptoms or no noticeable improvement over the next 24-48 hours. Follow-up with PCP this week. Clinical Impressions Clinical Impression: Sinusitis Instructions Patient Instructions: DI for Sinusitis Discharge ED Provider: Missael ([facility])Vaibhav [facility] [place] General Stated complaint: LOPEZ, sinus drainage Mode of Arrival: Ambulatory Source of Information: Patient Limitations: No Limitations Time Seen by Provider: 01/11/24 08:26 Description of Symptoms (Recalled from Triage Doc. by RN): PATIENT C/O RUNNY NOSE AND SINUS PAIN/PRESSURE HEENT Symptoms (Recalled from RN notes): Yes Resp Symptoms (Recalled from RN notes): No Skin Symptoms (Recalled from RN notes): No MS Symptoms (Recalled from RN notes): No Functional Status (Recalled from RN notes): WNL History of Present Illness Provider Complaint: 53 yr old male presents for green nasal drainage, sinus pressure and sinus tenderness Related Data Home Medications Medication Instructions Recorded Confirmed aspirin 81 mg tablet,delayed 81 mg PO DAILY Heartburn 12/21/22 08/29/23 release omeprazole 40 mg capsule,delayed 40 mg PO DAILY 07/15/23 08/29/23 release Previous Rx's Medication Instructions Recorded azithromycin 250 mg tablet See Rx Instructions PO .COMPLEX #6 08/29/23 (Zithromax Z-Aly) tabs prednisone 20 mg tablet 20 mg PO BID #10 tabs 08/29/23 acyclovir 5 % topical ointment 1 applic topical 6XD fever 10/18/23 blisters 7 days #15 grams budesonide 160 mcg-glycopyr 9 2 inh inhalation BID #5.9 grams 12/25/23 mcg-formot 4.8 mcg/actuation HFA inhaler atorvastatin 10 mg tablet (Lipitor) 10 mg PO HS #90 tabs 01/06/24 azithromycin 250 mg tablet 250 mg PO DIRECTED #6 tabs 01/11/24 Allergies Allergy/AdvReac Type Severity Reaction Status Date / Time cefaclor [From CECLOR] Allergy Mild Rash Verified 08/29/23 10:28 Penicillins [PENICILLINS] Allergy Unknown Verified 08/29/23 10:28 Worker's Comp Is this a Worker's Comp case?: No [facility] Disclaimer: The information contained in this section may have been updated after the patient was seen, as this information can be updated by other users. 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 caffeine: Yes ROS Obtained: Yes All systems reviewed & no additional complaints except as documented Constitutional Constitutional: Reports system reviewed and no additional complaints, except as documented Eyes Eyes: Reports system reviewed and no additional complaints, except as documented ENT Ears, Nose, Mouth, and Throat: Reports system reviewed and no additional complaints, except as documented, Reports as per HPI, Reports nasal congestion, Reports nasal discharge, Reports post nasal drip, Reports sinus pain and Reports sinus pressure Cardiovascular Cardiovascular: Reports system reviewed and no additional complaints, except as documented Respiratory Respiratory: Reports system reviewed and no additional complaints, except as documented Gastrointestinal Gastrointestingal: Reports system reviewed and no additional complaints, except as documented Integumentary/Breasts Skin/Breast: Reports system reviewed and no additional complaints, except as documented Neurologic Neurologic: Reports system reviewed and no additional complaints, except as documented Endocrine Endocrine: Reports system reviewed and no additional complaints, except as documented Hematologic/Lymphatic Henatologic/Lymphatic: Reports system reviewed and no additional complaints, except as documented Allergic/Immunologic Allergic/Immunologic: Reports system reviewed and no additional complaints, except as documented Physical Exam General General appearance: alert and in no apparent distress Head Head exam: atraumatic Eye Eye exam: Present normal appearance and PERRL ENT ENT exam: Present mucous membranes moist and TM's normal bilaterally Expanded ENT Exam Nose exam: Present sinus tenderness Neck Neck exam: Present normal inspection Respiratory Respiratory exam: Present normal lung sounds bilaterally Cardiovascular Cardiovascular exam: Present regular rate and normal rhythm Neurological Exam Neurological exam: Present alert and oriented X3 Skin Skin exam: Present warm and intact Medical Decision Making Medical Records Medical records reviewed: Yes I reviewed the patient's medical records. Miquel Inquiry Pt receiving controlled substance: No Miquel was queried for this patient: No Vital Signs: 01/11/24 08:10 01/11/24 08:24 Temperature 97.8 F 97.8 F Temperature Source Oral Pulse Rate 78 Pulse Rate [Left Brachial] 78 Respiratory Rate 19 19 Blood Pressure 144/89 H Blood Pressure [Left Arm] 144/89 H Blood Pressure Mean [Left Arm] 107 Blood Pressure Source [Left Arm] Automatic Cuff Blood Pressure Position [Left Arm] Sitting 02 Sat by Pulse Oximetry 98 Oxygen Delivery Method Room Air
[2024-01-11] MEDS: DEXAMETHASONE 4MG/ML 1ML VIAL 4 MG IM (08:37)
== END 2024-01-11 08:47 | disposition home or self-care (01) ==
PROVIDERS: Emergency Provider Nurse Practitioner Family; PCP Physician Assistant
DX: J01.90 Acute sinusitis, unspecified (principal); R51.9 Headache, unspecified; E78.5 Hyperlipidemia, unspecified; K21.9 Gastro-esophageal reflux disease without esophagitis; Z86.73 Personal history of transient ischemic attack (TIA), and cerebral infarction without residual deficits
CPT/HCPCS: 96372; 99212; 99214; G0463

== ENCOUNTER 2024-08-28 10:20 | Outpatient (CLI) | payer OTHER, SELFPAY ==
[2024-08-28 18:19] LABS: MANUAL DIFFERENTIAL MANUAL DIFFERENTIAL (MANUAL DIFF)
[2024-08-28 18:28] LABS: Basophils # 0.1 K/mm3 (0-0.2); Basophils % 0.9 % (0.1-2.0); Eosinophils # 0.5 K/mm3 (0.0-0.4); Eosinophils % 6.9 % (0.1-12.0); Hemoglobin 15.9 g/dL (14.1-18.0); Lymphocytes # 2.5 K/mm3 (0.7-4.5); Lymphocytes % 37.6 % (10-50); Mean Corpuscular HGB Conc 33.8 g/dL (31.8-35.4); Mean Corpuscular Hemoglobin 28.9 pg (27.0-31.2); Mean Corpuscular Volume 85.5 fl (80-94); Monocytes # 0.5 K/mm3 (0.1-1.0); Monocytes % 6.9 % (1.7-9.3); Neutrophils # 3.2 K/mm3 (1.8-7.8); Neutrophils % 47.7 % (37.0-80.0); Platelet Count 327 K/mm3 (142-424); Red Cell Distribution Width 13.3 % (11.5-17.5); White Blood Count 6.6 K/mm3 (4.8-10.8)
[2024-08-28 18:46] LABS: Alanine Aminotransferase 29 U/L (12-78); Albumin Level 4.1 g/dl (3.5-5.0); Albumin/Globulin Ratio 1.2 (1.1-1.8); Alkaline Phosphatase 75 U/L (38-126); Anion Gap 11.5 mEq/L (5-15); Aspartate Amino Transferase 34 U/L (17-59); Bilirubin,Total 0.6 mg/dl (0.2-1.3); Blood Urea Nitrogen 20 mg/dl (9-20); Calcium 9.1 mg/dl (8.4-10.2); Carbon Dioxide 24 mmol/L (22.0-30.0); Chloride 106 mmol/L (98-107); Chol/HDL Ratio 5.4 (1-3.5); Cholesterol 265 mg/dl (140-200); Creatine Kinase 177 U/L (55-170); Estimated Glomerular Filt Rate 88 ml/min (>60); GFR (African American) 106 ML/MIN (>60); Globulin 3.3 g/dL (1.3-3.2); Glucose 83 mg/dl (74-100); HDL Cholesterol 49 mg/dl (40-60); Magnesium 1.7 mg/dl (1.6-2.3); Potassium 4.5 mmoL/L (3.5-5.1); Sodium 137 mmol/L (136-145); Total Protein,Serum 7.4 g/dl (6.3-8.2); Triglycerides 190 mg/dl (30-150); VLDL Cholesterol 38 mg/dL (0-40)
[2024-08-28 18:57] LABS: Direct LDL Cholesterol 178.56 mg/dL (100-129)
[2024-08-28 19:04] LABS: 25-OH Vitamin D, Total 40.6 ng/mL (30-100)
[2024-08-28 19:16] LABS: Thyroid Stimulating Hormone 2.09 uIU/mL (0.465-4.68)
[2024-08-28 19:31] LABS: Eosinophils % 2 % (0-3); Lymphocytes % 46 % (10-50); Monocytes % 7 % (2-9); Neutrophils % 45 % (42-76); Platelet Estimate Normal; RBC Morphology Normal; Total Cells Counted 100
[2024-08-28 19:35] LABS: Vitamin B12 823 pg/mL (239-931)
[2024-08-28 20:35] LABS: Hemoglobin A1C 5.8 % (4.0-6.0)
[2024-08-28 22:57] LABS: HIV (1&2) Antibody Rapid NONREACTIVE (NONREACTIVE)
[2024-08-30 10:10] LABS: HCV Ab Non Reactive (Non Reactive)
== END 2024-08-28 23:59 | disposition home or self-care (01) ==
LOC: LAB.DROPOF 08-31 10:20
PROVIDERS: PCP Family Medicine; Visit Provider Family Medicine
DX: Z00.00 Encounter for general adult medical examination without abnormal findings (principal); E78.5 Hyperlipidemia, unspecified; M79.10 Myalgia, unspecified site; Z11.4 Encounter for screening for human immunodeficiency virus [HIV]; R53.83 Other fatigue; Z12.5 Encounter for screening for malignant neoplasm of prostate
CPT/HCPCS: 80053; 80061; 82306; 82550; 82607; 83036; 83735; 84443; 85007; 85014; 85018; 85048; 85049; 86803; 87389; G0103

== ENCOUNTER 2024-10-22 09:15 | Outpatient (CLI) | payer OTHER, SELFPAY ==
[2024-10-22 18:17] LABS: Coronavirus 19, PCR Not Detected (NotDetected); Influenza B, PCR Not Detected (NotDetected)
[2024-10-22 20:44] LABS: Influenza A, PCR Detected (NotDetected)
== END 2024-10-22 23:59 | disposition home or self-care (01) ==
LOC: LAB.DROPOF 10-26 09:32
PROVIDERS: PCP Family Medicine; Visit Provider Family Medicine
DX: R05.9 Cough, unspecified (principal); J09.X9 Influenza due to identified novel influenza A virus with other manifestations
CPT/HCPCS: 87636

== ENCOUNTER 2024-12-03 10:26 | Outpatient (CLI) | payer OTHER, SELFPAY ==
--- NOTE | 2024-12-03 10:29 | XR_ITS ---
FINAL REPORT TECHNIQUE: Cervical spine 3 views CLINICAL HISTORY: neck pain that radiates to left shoulder COMPARISON: None FINDINGS: CERVICAL SPINE: AP, lateral and odontoid views of the cervical spine were obtained. There is no prior exam for comparison. There is no acute fracture or malalignment. Vertebral body height is preserved. There is mild to moderate disc space narrowing present at the C5-6 and C6-7 levels. Anterior osteophytes are present at the C6-7 level. The precervical soft tissues are normal. IMPRESSION: Mild to moderate degenerative change without acute bony abnormality. Reviewed, Interpreted and Dictated by El Duncan MD Transcribed by Dinah Pineda Authenticated and [facility]
[2024-12-03 20:00] LABS: Alanine Aminotransferase 45 U/L (12-78); Albumin Level 4.3 g/dl (3.5-5.0); Albumin/Globulin Ratio 1.4 (1.1-1.8); Alkaline Phosphatase 108 U/L (38-126); Anion Gap 18.8 mEq/L (5-15); Aspartate Amino Transferase 48 U/L (17-59); Bilirubin,Total 0.7 mg/dl (0.2-1.3); Blood Urea Nitrogen 15 mg/dl (9-20); Calcium 9.2 mg/dl (8.4-10.2); Carbon Dioxide 23 mmol/L (22.0-30.0); Chloride 101 mmol/L (98-107); Chol/HDL Ratio 3.7 (1-3.5); Cholesterol 164 mg/dl (140-200); Estimated Glomerular Filt Rate 88 ml/min (>60); GFR (African American) 106 ML/MIN (>60); Glucose 109 mg/dl (74-100); HDL Cholesterol 44 mg/dl (40-60); Potassium 4.8 mmoL/L (3.5-5.1); Sodium 138 mmol/L (136-145); Total Protein,Serum 7.3 g/dl (6.3-8.2); Triglycerides 69 mg/dl (30-150); VLDL Cholesterol 14 mg/dL (0-40)
[2024-12-03 20:10] LABS: Direct LDL Cholesterol 88.74 mg/dL (100-129)
== END 2024-12-03 23:59 | disposition home or self-care (01) ==
LOC: RAD 10:27
PROVIDERS: PCP Family Medicine; Visit Provider Family Medicine
DX: M54.2 Cervicalgia (principal); S16.1XXA Strain of muscle, fascia and tendon at neck level, initial encounter; E78.5 Hyperlipidemia, unspecified
CPT/HCPCS: 72040; 80053; 80061

== ENCOUNTER 2024-12-24 17:00 | Outpatient (RCR) | payer OTHER, SELFPAY ==
--- NOTE | 2024-12-13 16:14 | HMH.PTOPEV ---
PT Outpatient Evaluation Rehab PT Outpatient Evaluation Start: 12/13/24 15:51 Freq: Status: Active Protocol: Document 12/11/24 14:00 GERI (Rec: 12/13/24 16:14 GERI [id number]) E-signed By Steve Lira, PT Outpatient Therapy Subjective History Subjective History Patient is a 54 year old male presenting to outpatient PT with reports of acute cervical spine pain with associated intermittent B intermittent radicular symptoms, as well as pain that radiates to B interscapular area. Symptoms of insidious onset approx 5 weeks ago. Most recent imagining indicate mild to moderate DDD/osteophytes. Other comorbidities include hx of HTN, B CTR and L5 discectomy. New diagnosis of cancer in past 12 No months? Chief Complaint Pain,Spasms,Stiff Symptom Type Ache,Burning Symptoms Relieved By Heat,Prescription Meds Symptoms Aggravated By Physical Activity,Lifting Prior Functional Limitations None Current Functional Limitations Reaching,Lifting,Housework, Recreation Activity Symptom Description Constant but Variable Level of pain today (0-10) 5 Pain scale - at its best (0-10) 5 Pain scale - at its worst (0-10) 8 Cervical Eval Palpation Cervical Muscles R Upper Trapezius,L Upper Trapezius,R Thoracic Paraspinals,L Thoracic Paraspinals Posture Head/C-Spine Posture Sitting Position C-Spine Flattened Head/C-Spine Posture Standing Position C-Spine Flattened Flexibility Deficits Upper Trapezius Muscle Length (R) Moderate Tightness,(L) Moderate Tightness Levaetor Scapulae Muscle Length (R) Moderate Tightness,(L) Moderate Tightness Pectoralis Minor Muscle Length (R) Moderate Tightness,(L) Moderate Tightness Passive Joint Mobility Cervical PIVM Dec: R OA L OA R AA L AA R C2/3 L C2/3 R C3/4 L C3/4 R C4/5 L C4/5 R C5/6 L C5/6 R C6/7 L C6/7 R C7/T1 L C7/T1 AROM Cervical Spine Extension Active Range of 42 Motion (degrees) Cervical Spine Flexion Active Range of 28 Motion (degrees) Cervical Spine Right Lateral Flexion 44 Active Range of Motion (degrees) Cervical Spine Left Lateral Flexion 46 Active Range of Motion (degrees) Cervical Spine Right Rotation Active 42 Range of Motion (degrees) Cervical Spine Left Rotation Active 40 Range of Motion (degrees) MMT Bilateral Deltoid (C5) 5 Normal Biceps Brachii Strength Grade 5 Normal Wrist Extension Strength Grade 5 Normal Triceps Brachii Strength Grade 5 Normal Wrist Flexion Strength Grade 5 Normal Extensor Pollicis Longus Strength Grade 5 Normal Altered Sensation Left Upper extremity Dermatomes C5 Comment intermittent burning Special Test C-Spine Foraminal Compression (Spurling) Positive Left Test C-Spine Foraminal Distraction Test Positive Neck Disability Index Neck Disability Index Section 1: Pain Intensity The pain is moderate at the moment Section 2: Personal Care (washing, I can look after myself dressing, etc.) normally without causing extra pain Section 3: Lifting I can lift heavy weights without extra pain Section 4: Reading I can read as much as I want to with no pain in my neck Section 5: Headaches I have no headaches at all Section 6: Concentration I can concentrate fully when I want to with no difficulty Section 7: Work I can only do my usual work, but no more Section 8: Driving I can drive my car without any neck pain Section 9: Sleeping My sleep is midly disturbed (1 -2 hrs sleepless) Section 10: Recreation I am able to engage in a few of my usual recreation activities because NDI Score 8 Outpatient Therapy Assessment Impairments Problems/Impairmments Palpation Tenderness,Impaired Range of Motion,Impaired Lifting,Impaired Household Care,Impaired Desk/Computer Activities,Subjective C/O Pain Prognosis Rehab Potential Good Clinical Impression Consistent with Diagnosis Yes Short Term Goals Number of Weeks 2-3 Decrease Subjective C/O Pain Yes: 4-6 Patient to be Ind w/ 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 Number of Weeks 4-6 Decreased Palpation Tenderness Yes: 1/4 Increase Range of Motion Yes: WNL Increase Ability to Drive/Ride in Car Yes Restore Ability to Lift Objects to Yes: 20 lbs without difficulty Shoulder Level Restore Ability to Lift Objects Overhead Yes Improve Ability For Household Care Yes Return to Recreational Activities Yes Improve Tolerance to Work Activities Yes Decrease Subjective C/O Pain Yes: 2/10 at worst Outpatient Therapy Plan of Care Treatment Plan May Include Therapeutic Exercise Including Home Yes Exercise Program Manual Therapy Techniques Yes Neuromuscular Re-education Yes Therapeutic Activities to Return to Yes Previous Functional/Work Level ADL/Self Care Education Yes Mechanical Traction Yes Dry Needling Yes Thermal Modalities Yes Electrical Stimulation Yes Ultrasound/Phonophoresis Yes Iontophoresis Yes Massage Yes Eval/Re-Eval Yes Frequency Times per week 2-3 Duration Number of Weeks 4-6 Addendums This patient is a candidate for social No or vocational rehab? Patient/Guardian verbally acknowledges Yes understanding of treatment program and consents to further treatment? Patient/Guardian verbally acknowledges Yes understanding of diagnosis, prognosis and goals for treatment? Eval Complexity PT Charges 11795 - Moderate Complexity Shoulder/Elbow Eval Shoulder Objective Measurements Elbow Objective Measurements PHYSICIAN CERTIFICATION: I certify the specified therapy services for Akil Thompson are required, authorized, and reviewed every 30 days.
== END 2024-12-24 23:59 | disposition home or self-care (01) ==
LOC: PT 17:00
PROVIDERS: PCP Family Medicine; Visit Provider Family Medicine
DX: M54.2 Cervicalgia (principal); S16.1XXA Strain of muscle, fascia and tendon at neck level, initial encounter
CPT/HCPCS: 97012; 97014; 97110; 97163; G0283

== ENCOUNTER 2025-01-20 17:00 | Outpatient (RCR) | payer OTHER, SELFPAY ==
--- NOTE | 2025-01-11 18:56 | HMH.RHREAS ---
Rehab Reassessment Rehab OP Re-assessment Start: 12/31/24 17:05 Freq: Status: Active Protocol: Document 01/11/25 18:35 OREN (Rec: 01/11/25 18:56 OREN [id number]) E-signed By Khalida Green, PT Neck Disability Index Neck Disability Index Section 1: Pain Intensity The pain is very mild at moment Section 2: Personal Care (washing, I can look after myself dressing, etc.) normally without causing extra pain Section 3: Lifting I can lift heavy weights but it gives extra pain Section 4: Reading I can read as much as I want to with slight pain in my neck Section 5: Headaches I have no headaches at all Section 6: Concentration I can concentrate fully when I want to with slight difficulty Section 7: Work I can only do my usual work, but no more Section 8: Driving I can drive my car as long as I want with slight pain in my neck Section 9: Sleeping My sleep is slightly disturbed (less than 1 hr sleepless) Section 10: Recreation I am able to engage in all my recreation activities with some pain in NDI Score 8 Rehab Re-assessment Subjective Subjective Pt reports he feels 85% improved since starting PT. Pt reports abolished numbness/ tingling into the right elbow, but does report continued intermittent pain from the right anterior shoulder to the mid arm and an itching sensation of the posterior right shoulder blade. Pt reports pain at worst as 4/10 on VAS aggravated by reaching, driving and lifting that abolishes with rest. Pt reports compliance with HEP. Objective Objective Notes Palpation: 1/4 TTP of R transverse processes of C4-C7 with referred pain into R intrascapular region, UT/LS mm Cervical AROM: flex 30, ext 45 (p!), RLF 45, LLF 45, R rot 55, L rot 60 Scapular strength 4/5 grossly Special tests: - compression, + Spurling's to R Assessment Progress Assessment Progressing as Expected Assessment Notes Pt has attended 6 PT treatment sessions and demonstrated improved subjective report of pain/paresthesia and cervical rotation AROM. Pt demonstrated no change in NDI score or cervical flexion AROM compared to the initial evaluation. 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 Overall, the pt would continue to benefit from skilled PT to further improve subjective report of pain/ paresthesia, cervical AROM, scapular strength and functional/occupational activity tolerance to improve overall QOL. Patient goals met STG : 11/29 LT/9 Goals Not Met cervical ROM, driving, lifting , work tolerance, p! at worst Revised Goals n/a Plan Plan Continue initial POC Frequency of Therapy 2x/week Duration of therapy 4 more weeks Time and Billing Re-Eval Time 12 Re-Eval Billing Units 0 Charge for PT reassessment? No Charge for OT reassessment? No PHYSICIAN CERTIFICATION: I certify the specified therapy services for Akil Thompson are required, authorized, and reviewed every 30 days.
== END 2025-01-20 23:59 | disposition home or self-care (01) ==
LOC: PT 17:00
PROVIDERS: PCP Family Medicine; Visit Provider Family Medicine
DX: S16.1XXA Strain of muscle, fascia and tendon at neck level, initial encounter (principal)
CPT/HCPCS: 97012; 97110